=== PATIENT | female | born 1935 | race Caucasian/White ===

== ENCOUNTER 2018-12-19 12:48 | Inpatient (IN) | payer MEDICARE, BC ==
[~2018-12-19] VITALS: Ht 162.6 cm; Wt 66.1 kg
--- NOTE | ~2018-12-19 | HEMODYNAMI ---
PATIENT:NERIS CARTWRIGHT MEDICAL RECORD: [id number] : 37 LOCATION:[facility].2103 ADMISSION DATE: 12/19/18 Generatedon:12/23/201811:15 Patient name: NERIS CARTWRIGHT Patient #: [id number] SSN: : 1935 Date of study: 12/23/2018 Page: Of Hemodynamic Procedure Report Patient Data Patient Demographics Procedure consent was obtained First Name: NERIS Gender: Female Last Name: CHAY : 1935 Patient #: [id number] Age: 83 year(s) Race: Additional ID: [id number] Contact details Address: [address] [place] [address] ddr State: [place] City: [place] Zip code: [address] Admission Admission Data Admission Date: 12/19/2018 Admission Time: 16:52 Room #: D.2103 Procedure Procedure Types Cath Procedure Diagnostic Procedure Cardioversion External Procedure Description Procedure Date Procedure Date: 12/23/2018 Procedure Start Time: 11:03 Procedure End Time: 11:10 Procedure Staff Name Function Nasreen Zurita RT Scrub Juancarlos Figueroa MD Performing Physician Kenna Mahmood RT Monitor Judith Fuentes RN Nurse Giacomo Tan MD Additional personnel Procedure Data Cath Procedure Fluoroscopy Diagnostic fluoroscopy Total fluoroscopy Time: 0 time: 0 min min Diagnostic fluoroscopy Total fluoroscopy dose: 0 dose: 0 mGy mGy Contrast Material Contrast Material Type Amount (ml) Isovue 370 0 Estimated blood loss: 0 ml Procedure Complications No complications Procedure Medications Medication Administration Route Dosage 0.9% NaCl I.V. 100 ml/hr Oxygen etCO2 Nasal cannula 6 l/min Refer to Anesthesia Notes for Sedation Medications Hemodynamics Rest Heart Rate: 81 (bpm) Snapshots Pre Cath Intra NCS Post Cath Vital Signs Time Heart Resp SPO2 etCO2 NIBP Rhythm Pain Sedation Rate (ipm) (%) (mmHg) (mmHg) Status Level (bpm) 10:56:31 74 15 98 18 121/63(84) A-Fib 0 (11) 10(A) , No pain 11:00:38 80 14 98 16.5 126/57(91) A-Fib 0 (11) 10(A) , No pain 11:04:48 81 17 98 20.3 108/59(75) A-Fib 0 (11) 5(A) , No pain 11:08:01 83 25 98 17.3 92/59(72) A-Fib 0 (11) 10(A) , No pain Medications Time Medication Route Dose Verified Delivered Reason Notes Effective ness by by 11:00:36 0.9% NaCl I.V. 100 Juancarlos Judith used for ml/hr Henry Fuentes director of maintenance 11:00:48 Oxygen etCO2 6 Juancarlos Judith used for Nasal l/min Henry Fuentes procedure cannula RN 11:00:52 Refer to Juancarlos Judith Anesthesia Henry Fuentes Notes for RN Sedation Medications Procedure Log Time Note 10:43:43 Informed consent obtained and on chart 10:44:00 Time tracking: Regular hours (M-F 7:00 - 5:00) 10:44:04 Plan of Care:Hemodynamics will remain stable., Cardiac rhythm will remain stable., Comfort level will be maintained., Respiratory function will remain adequate., Patient/ family verbilizes understanding of procedure., Procedure tolerated without complication., Recovers from procedure without complications.. 10:50:39 Patient received from Med II to CCL 2 Alert and oriented. Tansferred to table in Supine position. 10:50:40 Warm blankets applied, and derek hugger turned on for patient comfort. 10:50:41 Correct patient and procedure confirmed by team. 10:50:46 ECG and BP/O2 sat monitors applied to patient. 10:55:16 Vital chart was started 10:55:18 Baseline sample Acquired. 10:55:21 Rhythm: paced 10:55:23 Full Disclosure recording started 10:55:27 H&P Date Dictated: 12/23/2018 New H&P dictated by physician.. 10:55:28 Pre-procedure instructions explained to patient. 10:55:28 Pre-op teaching completed and patient verbalized understanding. 10:55:30 Family in patients room. 10:55:31 Patient NPO since Midnight. 10:55:35 Is the patient allergic to Iodine/contrast media? No. 10:55:36 Was the patient premedicated? No 10:55:37 Is patient on blood thinner?Yes 10:55:42 ACC The patient was administered the following blood thiners within the last 24 hours: Eliquis 10:55:48 Patient diabetic? No. 10:55:51 Previous problem with sedation/anesthesia? No ? 10:55:54 Snore? Yes 10:55:55 Sleep apnea? No 10:55:55 Deviated septum? No 10:55:56 Opens mouth fully? Yes 10:55:57 Sticks out tongue? Yes 10:55:59 Airway obstruction? No ? 10:56:02 Dentures? No ? 10:56:05 Pre procedure: right dorsailis pedis pulse 2+ Normal; easily identifiable; not easily obliterated 10:56:07 Pre procedure: left dorsailis pedis pulse 2+ Normal; easily identifiable; not easily obliterated 10:56:08 Patient pain scale 0/10 ?. 10:56:20 IV patent on arrival in right antecubital with 0.9% NaCl at O. 10:56:22 Lab results completed and on chart. 10:56:29 Alarms reviewed by R. N. 10:56:29 Sharps counted by scrub and verified by R.N. 10:57:19 [employer] security representative Lawrence Ferrera present for procedure. 10:57:26 Giacomo Tan MD present and monitoring patient for TIVA. 10:57:27 Quick combo pads placed on patients chest and back. 10:57:32 Defibrillator synced and charged to 200 Joules. 10:58:59 Judith Fuentes RN sent for patient. Start room use. 11:00:36 0.9% NaCl 100 ml/hr I.V. was administered by Judith Fuentes RN; used for procedure; 11:00:48 Oxygen 6 l/min etCO2 Nasal cannula was administered by Judith Fuentes RN; used for procedure; 11:00:52 Refer to Anesthesia Notes for Sedation Medications was administered by Judith Fuentes RN; ; 11:01:16 Physician arrived 11:01:16 --------ALL STOP TIME OUT------ 11:01:17 Final Timeout: patient, procedure, and site verified with staff and physician. All members of the team are in agreement. 11:01:25 Fire Safety Assessment: A--An alcohol-based skin anteseptic being used preoperatively., C--Open oxygen or nitrous oxide is being used., D--An ESU, laser, or fiber-optic light is being used. 11:01:29 Physical assessment completed. ASA score P 2 - A patient with mild systemic disease as per Juancarlos Figueroa MD. 11:01:47 Sedation plan: TIVA Medication:Propofol 11:03:43 Procedure started. 11:05:02 Shock delivered. 11:05:03 Unsuccessful cardioversion. 11:05:38 Defibrillator synced and charged to 300 Joules. 11:05:42 Shock delivered. 11:06:39 Unsuccessful cardioversion. 11:06:55 Defibrillator synced and charged to 360 Joules. 11:07:01 Shock delivered. 11:08:08 Unsuccessful cardioversion. 11:08:12 Procedure ended.(Physican Out) 11:08:42 Fluoroscopy time 00.00 minutes. 11:08:44 Fluoroscopy dose: 0 mGy 11:08:44 Flurop Dose total: 0 11:08:48 Contrast amount:Isovue 370 0ml. 11:08:51 Sharps counted by scrub and verified by R.N. 11:09:01 Insertion/operative site no bleeding no hematoma. 11:09:08 Post procedure rhythm: unchanged. 11:09:11 Estimated blood loss: 0 ml 11:09:13 Post procedure instruction explained to patient.Patient verbalizes understanding. 11:09:13 Patient needs reinforcement of post procedure teaching. 11:09:23 Procedure and supply charges have been captured, reviewed, submitted and are correct. 11:09:33 Procedure Complication : No complications 11:09:36 Vital chart was stopped 11:09:36 See physician's report for complete and final results. 11:10:05 Report given to Med II. 11:10:13 Patient transfered to Med II with Stretcher. 11:10:16 Procedure ended. 11:10:16 Full Disclosure recording stopped 11:10:27 End room use (Document Last) Signature Audit [place] Stage Time Signature Unsigned Intra-Procedure 12/23/2018 Nasreen Zurita 11:15:21 AM RT(R) Signatures Monitor : Kenna Mahmood Signature : RT Date : Time : [address] [place] [address]
[2018-12-19 13:30] VITALS: BP 115/50
[2018-12-19 14:00] VITALS: BP 104/53
--- NOTE | 2018-12-19 14:07 | NUR ---
PLACED ON BEDPAN FOR UA. UA SENT TO LAB. LARGE HEMATOMA NOTED TO THE LEFT GLUTE, AREA FIRM TO PALPATION. BRUISING IS DEEP PURPLE IN COLOR. SMALL ABRASION NOTED LEFT OF GLUTEAL CLEFT APPROX ONE INCH IS SIZE. ALSO SECOND ABRASION NOTED LATERAL TO 1ST ABRASION APPROX DIME SIZE. BANDAGES APPLIED TO BOTH.
[2018-12-19 14:29] LABS: BASOPHILS 0.1 % (0-2); EOSINOPHILS 0 % (0-7); HEMATOCRIT 29.4 % (36.0-48.0); IMMATURE GRANULOCYTES 0.4 % (0-5); LYMPHOCYTES 5.2 % (15-50); MCH 30.6 pg (26.0-34.0); MCV 89.9 fL (80.0-100.0); MEAN PLATELET VOLUME 9.2 fL (7.4-10.4); MONOCYTES 6.8 % (2-11); NEUTROPHILS 87.5 % (40-80); PLATELET COUNT 226 10x3/uL (130-400); RBC 3.27 10x6/uL (4.00-5.40); RDW 13.3 % (11.5-14.5); WBC 15.4 10x3/uL (4.8-10.8)
[2018-12-19 14:46] LABS: ALBUMIN 3.3 g/dL (3.4-5.0); ANION GAP 13.5 mmol/L (8-16); BILIRUBIN - TOTAL 0.92 mg/dL (0.2-1.3); CALCIUM 8.8 mg/dL (8.5-10.1); CARBON DIOXIDE 28.6 mmol/L (21.0-32.0); CREATININE - SERUM 0.8 mg/dL (0.6-1.3); POTASSIUM - SERUM 3.1 mmol/L (3.5-5.1); PROTEIN - SERUM 6.8 g/dL (6.4-8.2)
[2018-12-19 14:58] LABS: APPEARANCE CLEAR (CLEAR); COLOR DK YELLOW (YELLOW); NITRITE NEGATIVE (NEGATIVE)
[2018-12-19 14:59] LABS: BILIRUBIN NEGATIVE (NEGATIVE); GLUCOSE NEGATIVE (NEGATIVE); KETONE SMALL mg/dL (NEGATIVE); PROTEIN 1+ mg/dL (NEGATIVE); UROBILINOGEN NORMAL (NORMAL)
[2018-12-19 15:00] VITALS: BP 103/49
[2018-12-19 15:01] LABS: BACTERIA FEW /hpf (NONE SEEN); EPITHELIAL CELLS 0-5 /hpf (0-5); RED CELLS - URINE RARE /hpf (0-5); WHITE CELLS - URINE 0-5 /hpf (0-5)
[2018-12-19 15:22] LABS: THYROID STIMULATING HORMONE 1.85 uIU/mL (0.36-3.74)
[2018-12-19 15:28] LABS: CKMB 1.3 U/L (0.0-3.6); CREATINE KINASE 347 UL (21-215)
[2018-12-19 16:00] VITALS: BP 118/51
--- NOTE | 2018-12-19 16:12 | NUR ---
LT UPPER ARM INFILTRATED. D/C CATH INTACT BANDAID APPLIED. PIV RESITED TO TH RT FOREARM.
[2018-12-19 17:00] VITALS: BP 93/56
--- NOTE | 2018-12-19 18:01 | NUR ---
PT IN ROOM FROM ER. A/O, VERY PLESANT. NO COMPLAINTS/CONCERNS. FAMILY AT BEDSIDE.
--- NOTE | 2018-12-19 18:26 | NUR ---
PT IS WEARING SCD'S.
--- NOTE | 2018-12-19 18:30 | NUR ---
PTS SON WILL BE HERE AROUND 1900 WITH HER MEDLIST. UNTIL THEN PT DOES NOT KNO WHER HOME MEDICATIONS.
--- NOTE | 2018-12-19 19:00 | NUR ---
PATIENT LAYING IN BED. FAMILY AT BEDSIDE. NO COMPLAINTS AT THIS TIME. NO DISTRESS NOTED.
[2018-12-19 20:00] VITALS: BP 103/51
--- NOTE | 2018-12-19 23:42 | NUR ---
PATIENT LAYING IN BED. EYES CLOSED, CHEST RISING AND FALLING. NO DISTRESS NOTED.
[2018-12-20] VITALS: BP 94/55
--- NOTE | 2018-12-20 02:05 | NUR ---
I have reviewed this patient and I concur with the Shift Assessment completed by the Licensed Practical Nurse today this shift.
[2018-12-20 04:00] VITALS: BP 109/57
[2018-12-20 04:17] LABS: BASOPHILS 0.2 % (0-2); EOSINOPHILS 0 % (0-7); HEMATOCRIT 26.2 % (36.0-48.0); HEMOGLOBIN 8.7 g/dL (12-16); IMMATURE GRANULOCYTES 0.4 % (0-5); LYMPHOCYTES 8.8 % (15-50); MCH 29.9 pg (26.0-34.0); MCHC 33.2 g/dL (31.0-37.0); MONOCYTES 4.5 % (2-11); NEUTROPHILS 86.1 % (40-80); PLATELET COUNT 194 10x3/uL (130-400); RBC 2.91 10x6/uL (4.00-5.40); RDW 13.6 % (11.5-14.5)
[2018-12-20 04:19] LABS: WBC 11.4 10x3/uL (4.8-10.8)
[2018-12-20 04:41] LABS: ANION GAP 11.4 mmol/L (8-16); CALCIUM 7.9 mg/dL (8.5-10.1); CARBON DIOXIDE 27.6 mmol/L (21.0-32.0); CREATININE - SERUM 0.8 mg/dL (0.6-1.3); MAGNESIUM - SERUM 1.7 mg/dL (1.8-2.4); PHOSPHOROUS 2.6 mg/dL (2.5-4.9)
--- NOTE | 2018-12-20 07:13 | NUR ---
AM ROUNDS- PT RESTING COMFORTABLY WITH EYES CLOSED, EASILY AROUSES TO VOICE. ON 2L WITH EVEN AND UNLABORED RESP. RT FA IV INFUSING NS AT KVO. SCDS ON BILAT. MONITOR SHOWING FIB/FLUTTER WITH RATE OF 103. PROVIDED PT WITH ICE WATER, PILL BOX AT BEDSIDE, INFORMED PT NOT TO TAKE ANY OF HER MEDICATIONS UNTIL SEEN BY DOCTOR TODAY. PT DENIES ANY NEEDS AT THIS TIME. CALL LIGHT IN REACH, NAD NOTED, WILL CONTINUE PLAN OF CARE.
[2018-12-20 08:01] VITALS: BP 100/60
[2018-12-20 09:52] VITALS: BMI 24.0
[2018-12-20] MEDS ORDERED: TRICOR145 MG PO (11:03)
[2018-12-20] MEDS ORDERED: MAXZIDE 75/501 TAB PO (11:04)
[2018-12-20] MEDS ORDERED: CELEXA20 MG PO (11:05)
[2018-12-20] MEDS ORDERED: VITAMIN B-121000 MCG PO (11:06)
[2018-12-20] MEDS ORDERED: MERIBIN5 MG PO (11:07)
[2018-12-20] MEDS ORDERED: ASPIRIN81 MG PO (11:08)
[2018-12-20] MEDS ORDERED: VITAMIN D5000 UNIT PO (11:09)
[2018-12-20] MEDS ORDERED: OMEGA-3100 MG PO (11:09)
[2018-12-20] MEDS ORDERED: POTASSIUM99 M1 PO (11:10)
[2018-12-20] MEDS ORDERED: GLUCOSAMINE HC500 MG PO (11:11)
[2018-12-20] MEDS ORDERED: MELATONIN5 MG PO (11:16)
[2018-12-20] MEDS ORDERED: ELIQUIS5 MG PO (11:20)
[2018-12-20] MEDS ORDERED: ESTRACE 0.5 MG0.5 MG PO (11:20)
[2018-12-20] MEDS ORDERED: OXYBUTYNIN CHLOR5 MG PO (11:27)
[2018-12-20] MEDS ORDERED: AMIODARONE HCL200 MG PO (11:27)
[2018-12-20] MEDS ORDERED: CARTIA XT180 MG PO (11:27)
[2018-12-20] MEDS ORDERED: SYNTHROID25 MCG PO (11:28)
[2018-12-20 11:35] VITALS: BP 109/48
--- NOTE | 2018-12-20 14:05 | NUR ---
Rehab Note- Acute Inpatient Rehab prescreen order received. The patient is a new admit and is currently having an acute work up with a pending Cardiology consult with d/t prior to hospital admit having discussed possible cardioversion d/t A-fib, also pending OT & PT Evals. Will continue to follow at this time. Thank you for this referral! Sole Sheffield RN Clinical Liaison, [facility] Rehab
[2018-12-20 17:04] LABS: % SATURATION 4 % (15-55); IRON 9 ug/dl (35-150); TOTAL IRON BIND CAPACITY 212 ug/dl (260-445); UNSAT IRON BIND CAPACITY 203 ug/dl (150-375)
--- NOTE | 2018-12-20 17:20 | NUR ---
OT NOTE: PT COMPLETED BED MOB WITH MOD A. PT COMPLETED EOB SITTING WITH CGA. PT COMPLETED FACE WASHING WITH SET UP AT EOB. THANK YOU, RANDI DUNN
--- NOTE | 2018-12-20 19:58 | NUR ---
ROUNDS COMPLETED. VSS, TRINIOX3. FAMILY @BEDSIDE. NO S/S OF RR DISTRESS. OCCULT STOOL SAMPLE COLLECTED AND SENT TO THE LAB. PT DENIES ANY FURTHER NEEDS AT THIS TIME. WILL CPOC. CL IN REACH, BED IN LOW, SR UP X2.
[2018-12-20 20:00] VITALS: BP 128/76
[2018-12-21] VITALS (7 sets, daily range): BP systolic 102–134; BP diastolic 62–76; Ht 162.6 cm; Wt 66.1 kg
[2018-12-21 05:48] LABS: BASOPHILS 0.2 % (0-2); EOSINOPHILS 0.2 % (0-7); HEMATOCRIT 26.3 % (36.0-48.0); HEMOGLOBIN 9.1 g/dL (12-16); LYMPHOCYTES 5.5 % (15-50); MCH 30.3 pg (26.0-34.0); MCHC 34.6 g/dL (31.0-37.0); MEAN PLATELET VOLUME 9.6 fL (7.4-10.4); MONOCYTES 6.2 % (2-11); NEUTROPHILS 86.9 % (40-80); RDW 13.4 % (11.5-14.5)
[2018-12-21 06:24] LABS: ALKALINE PHOSPHATASE 57 U/L (46-116); ALT (SGPT) 21 U/L (10-68); BILIRUBIN - TOTAL 0.62 mg/dL (0.2-1.3); CALC OSMOLALITY 278 mosm/kg (275-300); CALCIUM 8.3 mg/dL (8.5-10.1); CARBON DIOXIDE 30.3 mmol/L (21.0-32.0); CHLORIDE - SERUM 104 mmol/L (98-107); CREATININE - SERUM 0.7 mg/dL (0.6-1.3); GLUCOSE 102 mg/dL (74-106); MAGNESIUM - SERUM 1.8 mg/dL (1.8-2.4); PROTEIN - SERUM 5.6 g/dL (6.4-8.2); SODIUM 140 mmol/L (136-145); UREA NITROGEN 12 mg/dL (7-18); eGFR NON AFRICAN AMERICAN 85 mL/min (90-120)
[2018-12-21 06:29] LABS: MCV 87.7 fL (80.0-100.0); PLATELET COUNT 254 10x3/uL (130-400); WBC 14.7 10x3/uL (4.8-10.8)
[2018-12-21 06:46] LABS: ALBUMIN 2.2 g/dL (3.4-5.0)
[2018-12-21 06:48] LABS: POTASSIUM - SERUM 2.9 mmol/L (3.5-5.1)
--- NOTE | 2018-12-21 08:41 | NUR ---
AM MEDS GIVEN AT THIS TIME. PT A/O X4, RESP EVEN AND NONLABORED ON 2L. RT FA IV SL. MONITOR SHOWING CAF WITH THE RATE OF 100. PT EATING BREAKAST, NO TROUBLE SWALLOWING NOTED. PT DENIES ANY NEEDS AT THIS TIME. CALL LIGHT IN REACH, BEDSIDE RAILS X2, NAD NOTED, WILL CONTINUE PLAN OF CARE.
--- NOTE | 2018-12-21 09:24 | NUR ---
Rehab Note- Continue to follow at this time. Continues to have cardiac work up. Per PT & OT Evals the patient would benefit from an inpatient acute rehab stay prior to being discharged home. Thank you for this referral! Sole Sheffield RN Clinical Liaison, [facility] Rehab
--- NOTE | 2018-12-21 10:51 | NUR ---
C/O COUGH, NOTIFIED PETE PENA, NEW ORDER FOR TESSALON PERLES 100MG TID.
--- NOTE | 2018-12-21 12:54 | MORECARE ---
CASE MANAGEMENT DISCHARGE SUMMARY PATIENT: NERIS CARTWRIGHT UNIT: [id number] ADM DATE: 12/19/18 AGE: 83 : 36 SEX: F ROOM/BED: D.2103 AUTHOR: LUIS WOOD PHYSICIAN: REFERRING PHYSICIAN: DECLAN RAINES MD DATE OF SERVICE: 12/21/18 Discharge Plan Patient Name: NERIS CARTWRIGHT [facility] [facility] 1935 Planned Disposition: Inpatient Rehab Anticipated Discharge Date: 12/22/18 Discharge Date: Expected LOS: 3 Initial Reviewer: [email or web address] Initial Review Date: 12/21/2018 Generated: 12/21/18 1:54 pm DCPIA - Discharge Planning Initial Assessment Updated by [email or web address]: Zoltan Soto on 12/21/18 12:50 pm * Is the patient Alert and Oriented? Yes * How many steps to enter\exit or inside your home? NONE * PCP DR. WEBSTER * Pharmacy [facility] ON [address] * Preadmission Environment Independent [facility] * Other Environment APARTMENT * Facility Name [facility] * ADLs Independent * Equipment Cane Rolling Walker * Other Equipment 4 WHEELED WALKER WITH SEAT AND BRAKES NO MEDICAL EQUIPMENT PROVIDER PREFERENCE * List name and contact numbers for known caregivers / representatives who currently or will assist patient after discharge: HUSSAINSung CARTWRIGHT, DTR IN LAW, * Verbal permission to speak to the caregivers and representatives has been obtained from the patient. N/A * Community resources currently utilized None * Please name any agencies selected above. NONE * Additional services required to return to the preadmission environment? Yes * Can the patient safely return to the preadmission environment? Yes * Has this patient been hospitalized within the prior 30 days at any hospital? Yes Patient Name: NERIS CARTWRIGHT Page [id number] at 0594 All edits/amendments must be made on the electronic document DICTATION DATE: 12/21/18 1253 PEST CONTROLLER: DEMARCO 12/21/18 1253 RPT#: [id number] DC DATE: STATUS: ADM IN [facility] [address] [place] [address] END OF REPORT
--- NOTE | 2018-12-21 13:02 | MORECARE ---
CASE MANAGEMENT DISCHARGE SUMMARY PATIENT: NERIS CARTWRIGHT UNIT: [id number] ADM DATE: 12/19/18 AGE: 83 : 36 SEX: F ROOM/BED: D.2103 AUTHOR: ISRAEL,DOC PHYSICIAN: REFERRING PHYSICIAN: DECLAN RAINES MD DATE OF SERVICE: 12/21/18 Discharge Plan Patient Name: NERIS CARTWRIGHT [facility] [facility] 1935 Planned Disposition: Inpatient Rehab Anticipated Discharge Date: 12/22/18 Discharge Date: Expected LOS: 3 Initial Reviewer: [email or web address] Initial Review Date: 12/21/2018 Generated: 12/21/18 2:01 pm Comments DCP- Discharge Planning Updated by [email or web address]: Zoltan Soto on 12/21/18 11:[address] Patient Name: NERIS CARTWRIGHT Encounter No: [id number] : 1935 Primary Insurance: MEDICARE A & B Anticipated DC Date: 12-22-2018 Planned Disposition: Inpatient Rehab External Planned Provider: [facility] INPATIENT RHEAB DISCHARGE PLANNING NOTE: CM RECEIVED INPATIENT REHAB PRESCREENING ORDER, MET WITH PT IN ROOM TO DISCUSS DISCHARGE PLANNING AND NEEDS. PT REPORTS LIVING AT [facility] APARTMENT ALONE. PT HAS CANE AND WALKER WITH SEAT AND BRAKES WITH NO MEDICAL EQUIPMENT PROVIDER PREFERENCE. PT HAS NO OUTSIDE SERVICES ASSISTING IN THE HOME. CM DISCUSSED AVAILABILITY OF HOME HEALTH, REHAB SERVICES AND MEDICAL EQUIPMENT. PT WOULD LIKE REHAB AT [place]. PT FEELS THAT IN THE FUTURE, SHE MAY NEED TO MOVE INTO THE ASSISTED LIVING AT [facility], SHE IS NOT SURE AT THIS TIME. IMPORTANT MESSAGE FROM MEDICARE PROVIDED AND EXPLAINED. CM WAITING INPATIENT REHAB PRESCREENING AND ADMISSION DETERMINATION FROM [facility] INPATIENT REHAB. CM TO FOLLOW AND ASSIST NEEDED. MOE Heath DCPIA - Discharge Planning Initial Assessment Updated by [email or web address]: Zoltan Soto on 12/21/18 12:50 pm * Is the patient Alert and Oriented? Yes * How many steps to enter\exit or inside your home? NONE * PCP DR. WEBSTER * [facility]acy [facility] [address] * Preadmission Environment Independent [facility] * Other Environment APARTMENT * Facility Name [facility] * ADLs Independent * Equipment Cane Rolling Walker * Other Equipment 4 WHEELED WALKER WITH SEAT AND BRAKES NO MEDICAL EQUIPMENT PROVIDER PREFERENCE * List name and contact numbers for known caregivers / representatives who currently or will assist patient after discharge: HUSSAIN CARTWRIGHT DTR IN LAW, * Verbal permission to speak to the caregivers and representatives has been obtained from the patient. N/A * Community resources currently utilized None * Please name any agencies selected above. NONE * Additional services required to return to the preadmission environment? Yes * Can the patient safely return to the preadmission environment? Yes * Has this patient been hospitalized within the prior 30 days at any hospital? Yes Last DP export: 12/21/18 11:54 a Patient Name: NERIS CARTWRIGHT Page [phone] at 1302 All edits/amendments must be made on the electronic document DICTATION DATE: 12/21/18 1301 FACTORY ENGINEER: DEMARCO 12/21/18 1301 RPT#: [id number] DC DATE: STATUS: ADM IN [facility] [address] [place] [address] END OF REPORT
--- NOTE | 2018-12-21 14:20 | NUR ---
K OF 3.1 GAVE 40MEQ OF K PER EP.
--- NOTE | 2018-12-21 15:56 | NUR ---
OT NOTE: PT COMPLETED BED MOB WITH MOD/MAX. PT COMPLETED SIT TO STAND WITH MIN A. PT COMPLETED BATHING TASKS AT EOB WITH MOD A. THANK YOU,RANDI DUNN
--- NOTE | 2018-12-21 19:15 | NUR ---
PT RESTING IN BED. 2L O2 NC. PT IS AAO, HEARTRATE IRREGULAR. PACEMAKER NOTED. LUNGS CLEAR. PT HAS SCD'S ON BILATERAL LOWER EXTREM. RIGHT WRIST 22G S/L WEAKNESS NOTED. PEDAL PULSES +2 PT IS VERY WEAK, WILL CPOC
--- NOTE | 2018-12-21 21:49 | NUR ---
NIGHT MEDICATIONS GIVEN. TYLENOL GIVEN FOR GENERALIZED PAIN. PT UP TO RESTROOM WITH 1-2 PERSON ASSIST. PT INCONT A MODERATE AMOUNT INTO BREIF. PT HAS RA NOTED IN CONTRACTED HANDS. LEFT ELBOW BRUISE AND SKIN TEAR. PT WILL CALL FOR ASSIST WHEN NEEDED. WILL CPOC
[2018-12-22 00:09] VITALS: BP 126/58
--- NOTE | 2018-12-22 00:25 | NUR ---
PT UP TO RESTROOM. X1 ASSIST. VERBAL QUES. PT GAIT UNSTEADY. WALKED BACK TO BED AND NOURISHMENT OFFERED. PT ON 2L O2 NC. SCD'S ON AND ACTIVE. PT HAS NO S/S OF DISTRESS. DENIES ANY OTHER NEEDS. WILL CPOC
[2018-12-22 04:00] VITALS: BP 121/54
--- NOTE | 2018-12-22 04:05 | NUR ---
PT CALLED TO USE RESTROOM. PT INCONT A MODERATE AMOUNT OF URINE. NEW BREIF PLACED ON. PT BACK TO BED. DENIES ANY NEEDS. NO S/S OF DISTRESS. WILL CPOC
[2018-12-22 06:08] LABS: BASOPHILS 0.1 % (0-2); EOSINOPHILS 0.1 % (0-7); HEMATOCRIT 25.5 % (36.0-48.0); HEMOGLOBIN 8.8 g/dL (12-16); LYMPHOCYTES 4.2 % (15-50); MCH 30.1 pg (26.0-34.0); MCHC 34.5 g/dL (31.0-37.0); MCV 87.3 fL (80.0-100.0); MEAN PLATELET VOLUME 9.4 fL (7.4-10.4); MONOCYTES 6.4 % (2-11); NEUTROPHILS 86.2 % (40-80); PLATELET COUNT 264 10x3/uL (130-400); RBC 2.92 10x6/uL (4.00-5.40); RDW 13.4 % (11.5-14.5); WBC 17.9 10x3/uL (4.8-10.8)
[2018-12-22 06:29] LABS: ALBUMIN 2.1 g/dL (3.4-5.0); ALKALINE PHOSPHATASE 64 U/L (46-116); ALT (SGPT) 23 U/L (10-68); BILIRUBIN - TOTAL 0.78 mg/dL (0.2-1.3); CALC OSMOLALITY 273 mosm/kg (275-300); CALCIUM 8.4 mg/dL (8.5-10.1); CARBON DIOXIDE 27.4 mmol/L (21.0-32.0); CHLORIDE - SERUM 102 mmol/L (98-107); CREATININE - SERUM 0.6 mg/dL (0.6-1.3); GLUCOSE 108 mg/dL (74-106); MAGNESIUM - SERUM 1.7 mg/dL (1.8-2.4); PROTEIN - SERUM 5.9 g/dL (6.4-8.2); SODIUM 137 mmol/L (136-145); UREA NITROGEN 9 mg/dL (7-18); eGFR NON AFRICAN AMERICAN > 90 mL/min (90-120)
[2018-12-22 06:38] LABS: POTASSIUM - SERUM 3.7 mmol/L (3.5-5.1)
--- NOTE | 2018-12-22 07:12 | NUR ---
MORNING MEDS GIVEN. MAGNESIUM 400MG GIVEN FOR 1.7 LAB VALUE RESULT. PT WILL CALL FOR ASSIST WHEN NEEDED. WILL CPOC
--- NOTE | 2018-12-22 07:15 | NUR ---
RESTING QUIETLY WITH EYES CLOSED. RESP EVEN,NONLABORED.
--- NOTE | 2018-12-22 08:00 | NUR ---
ASSESSMENT COMPLETE. SL TO R FA. O2 2L NC IN USE. INCONT OF BLADDER AT TIMES. SALESPERSON FLOWERS SHOWING AFIB 93 PER TECH. SCD'S IN USE TO BILAT LEGS. DENIES ANY NEEDS AT THIS TIME.
[2018-12-22 08:48] VITALS: BP 109/61
[2018-12-22 11:59] VITALS: BP 116/63
--- NOTE | 2018-12-22 12:00 | NUR ---
VISITING WITH SON. DENIES ANY NEEDS AT THIS TIME.
[2018-12-22 12:12] LABS: FOLATE (FOLIC ACID) - SERUM 17.4 ng/mL (>3.0)
--- NOTE | 2018-12-22 13:01 | NUR ---
OT NOTE: PERFORMED BED MOB INCLUDING SUPINE TO SIT WITH MOD ASSIST. AMBULATED TO BATHROOM WITH RW AND MIN ASSIST; TOILET TRANSFER WITH MIN/MOD ASSIST; TOILET HYGIENE WITH MOD ASSIST; REQUIRED MAX ASSIST WITH DOFFING AND DONNING BRIEF. SIMPLE GROOMING TASKS WITH SET UP. IN ROOM AMBULATION WITH ASSIST AND 2 REST BREAKS. BACK IN BED WITH MOD ASSIST. WILDER ULLOA, OTR/L
--- NOTE | 2018-12-22 14:38 | NUR ---
DENIES ANY NEEDS. RESTING QUIETLY IN BED.
[2018-12-22 16:17] VITALS: BP 110/53
[2018-12-22 20:00] VITALS: BP 114/66
[2018-12-23] VITALS: BP 117/68
[2018-12-23 04:00] VITALS: BP 113/59
[2018-12-23 06:21] LABS: BASOPHILS 0.2 % (0-2); EOSINOPHILS 0.2 % (0-7); HEMATOCRIT 26.1 % (36.0-48.0); HEMOGLOBIN 9.1 g/dL (12-16); IMMATURE GRANULOCYTES 6.5 % (0-5); MCH 30.4 pg (26.0-34.0); MCHC 34.9 g/dL (31.0-37.0); MCV 87.3 fL (80.0-100.0); MEAN PLATELET VOLUME 8.8 fL (7.4-10.4); MONOCYTES 8.9 % (2-11); NEUTROPHILS 78.2 % (40-80); PLATELET COUNT 284 10x3/uL (130-400); RBC 2.99 10x6/uL (4.00-5.40); RDW 13.6 % (11.5-14.5)
[2018-12-23 06:49] LABS: ALBUMIN 2.1 g/dL (3.4-5.0); ALKALINE PHOSPHATASE 65 U/L (46-116); BILIRUBIN - TOTAL 0.86 mg/dL (0.2-1.3); CALC OSMOLALITY 266 mosm/kg (275-300); CALCIUM 8.4 mg/dL (8.5-10.1); CHLORIDE - SERUM 98 mmol/L (98-107); CREATININE - SERUM 0.6 mg/dL (0.6-1.3); GLUCOSE 107 mg/dL (74-106); MAGNESIUM - SERUM 1.8 mg/dL (1.8-2.4); POTASSIUM - SERUM 3.2 mmol/L (3.5-5.1); PROTEIN - SERUM 6.3 g/dL (6.4-8.2); SODIUM 134 mmol/L (136-145); UREA NITROGEN 9 mg/dL (7-18); eGFR NON AFRICAN AMERICAN > 90 mL/min (90-120)
[2018-12-23 06:50] LABS: ALT (SGPT) 29 U/L (10-68)
--- NOTE | 2018-12-23 07:35 | NUR ---
ASSESSMENT COMPLETE. SL TO R FA. O2 2L NC IN USE. INCONT OF BLADDER AT TIMES. MANAGER OF CUSTOMER BILLING SHOWING AFIB 73 PER TECH.NPO FOR CARDIOVERSION TODAY. DENIES ANY NEEDS AT THIS TIME.
[2018-12-23 07:50] VITALS: BP 110/59
--- NOTE | 2018-12-23 10:48 | NUR ---
OFF FLOOR TO CONSTRUCTION CONTROLLER VIA BED.
--- NOTE | 2018-12-23 11:20 | NUR ---
RETURNED TO ROOM. FAMILY AT BEDSIDE. VSS.
--- NOTE | 2018-12-23 13:40 | NUR ---
Nutrition follow-up: Diet: AHA with po intake ~75% of meals Labs reviewed Pt had heart cath today Wt: 142# RDN following.
--- NOTE | 2018-12-23 15:00 | NUR ---
NO CHANGES NOTED AT THIS TIME.
[2018-12-23 15:39] VITALS: BP 116/64
--- NOTE | 2018-12-23 18:12 | NUR ---
NO CHANGES NOTED AT THIS TIME.
--- NOTE | 2018-12-23 18:47 | NUR ---
ROBUTUSSIN COUGH SYRUP GIVEN PER PATIENT REQUEST.
--- NOTE | 2018-12-23 19:30 | NUR ---
RESUMING CARE PT LAYING IN BED A&O X4 BREATH SOUNDS EVEN , 3 LITERS OF 02 ON VIA NC . IV LFT FA CL SCD'S ON, PT HAS BRUISING TO BOTH HIPS AND BOTTOM C/O PAIN AT THIS TIME CL IN REACH WILL CONT TO MONITOR
[2018-12-23 20:00] VITALS: BP 108/54; BP 116/61
[2018-12-24] VITALS: BP 108/54
--- NOTE | 2018-12-24 02:24 | NUR ---
I have reviewed this patient and I concur with the Shift Assessment completed by the Licensed Practical Nurse today this shift.
[2018-12-24 05:22] LABS: BASOPHILS 0.1 % (0-2); EOSINOPHILS 0.5 % (0-7); HEMATOCRIT 24.1 % (36.0-48.0); HEMOGLOBIN 8.4 g/dL (12-16); IMMATURE GRANULOCYTES 9.3 % (0-5); LYMPHOCYTES 6.6 % (15-50); MCH 30.5 pg (26.0-34.0); MCHC 34.9 g/dL (31.0-37.0); MCV 87.6 fL (80.0-100.0); MEAN PLATELET VOLUME 8.9 fL (7.4-10.4); MONOCYTES 7.9 % (2-11); NEUTROPHILS 75.6 % (40-80); PLATELET COUNT 311 10x3/uL (130-400); RBC 2.75 10x6/uL (4.00-5.40); RDW 13.8 % (11.5-14.5); WBC 14.8 10x3/uL (4.8-10.8)
[2018-12-24 05:33] LABS: ALBUMIN 1.9 g/dL (3.4-5.0); ALKALINE PHOSPHATASE 60 U/L (46-116); ALT (SGPT) 31 U/L (10-68); BILIRUBIN - TOTAL 0.79 mg/dL (0.2-1.3); CALC OSMOLALITY 271 mosm/kg (275-300); CALCIUM 8.3 mg/dL (8.5-10.1); CHLORIDE - SERUM 101 mmol/L (98-107); CREATININE - SERUM 0.6 mg/dL (0.6-1.3); GLUCOSE 105 mg/dL (74-106); MAGNESIUM - SERUM 2.1 mg/dL (1.8-2.4); POTASSIUM - SERUM 3.5 mmol/L (3.5-5.1); PROTEIN - SERUM 5.8 g/dL (6.4-8.2); SODIUM 136 mmol/L (136-145); eGFR NON AFRICAN AMERICAN > 90 mL/min (90-120)
[2018-12-24 05:36] LABS: UREA NITROGEN 12 mg/dL (7-18)
--- NOTE | 2018-12-24 07:05 | NUR ---
RECEIVED IN BED WITH SR UP X2. RESP EVEN WITHOUT LABOR. O2 ON AT 2L/M PER N/C. SCD'S ARE ON. RIGHT FOREARM SL INTACT. CL IN REACH BED IN LOWEST POSITION. REMINDED TO PLEASE CALL FOR HELP. NON-SKID SOCKS ON. DENIES ANY CURRENT NEEDS.
[2018-12-24 09:38] VITALS: BP 106/60
--- NOTE | 2018-12-24 10:30 | NUR ---
ALERT ABLE TO VOICE NEEDS. TYLENOL GIVEN FOR CHRONIC ARTHRITIC PAIN. SON AT BEDSIDE ASSISTED HER UP TO BATHROOM TOLERATED WELL. HE STATES I BEEN HELPING HER FOR YEARS. DENIES ANY CURRENT NEEDS CL IN REACH.
[2018-12-24] MEDS ORDERED: LANOXIN125 MCG PO (10:52)
[2018-12-24] MEDS ORDERED: ELIQUIS2.5 MG PO (10:52)
[2018-12-24] MEDS ORDERED: LEVAQUIN750 MG PO (10:52)
[2018-12-24 12:43] VITALS: BP 119/66
--- NOTE | 2018-12-24 13:15 | NUR ---
FAMILY AT BEDSIDE DENIES ANY NEEDS AT THIS TIME. CL IN REACH. HAS HAD NO BM TODAY BUT SHE IS AWARE OF NEED FOR SPECIMEN WITH HAT IN BATHROOM.
--- NOTE | 2018-12-24 14:14 | MORECARE ---
CASE MANAGEMENT DISCHARGE SUMMARY PATIENT: NERIS CARTWRIGHT UNIT: [id number] ADM DATE: 12/19/18 AGE: 83 : 36 SEX: F ROOM/BED: D.2103 AUTHOR: ISRAEL,DOC PHYSICIAN: REFERRING PHYSICIAN: DECLAN RAINES MD DATE OF SERVICE: 12/24/18 Discharge Plan Patient Name: NERIS CARTWRIGHT [facility] [facility] 1935 Planned Disposition: Inpatient Rehab Anticipated Discharge Date: 12/24/18 Discharge Date: Expected LOS: 5 Initial Reviewer: [email or web address] Initial Review Date: 12/21/2018 Generated: 12/24/18 3:14 pm DCP- Discharge Planning Updated by [email or web address]: Zoltan Soto on 12/21/18 11:[address] Patient Name: NERIS CARTWRIGHT Encounter No: [id number] : 1935 Primary Insurance: MEDICARE A & B Anticipated DC Date: 12-22-2018 Planned Disposition: Inpatient Rehab External Planned Provider: [facility] INPATIENT RHEAB DISCHARGE PLANNING NOTE: CM RECEIVED INPATIENT REHAB PRESCREENING ORDER, MET WITH PT IN ROOM TO DISCUSS DISCHARGE PLANNING AND NEEDS. PT REPORTS LIVING AT [facility] APARTMENT ALONE. PT HAS CANE AND WALKER WITH SEAT AND BRAKES WITH NO MEDICAL EQUIPMENT PROVIDER PREFERENCE. PT HAS NO OUTSIDE SERVICES ASSISTING IN THE HOME. CM DISCUSSED AVAILABILITY OF HOME HEALTH, REHAB SERVICES AND MEDICAL EQUIPMENT. PT WOULD LIKE REHAB AT [place]. PT FEELS THAT IN THE FUTURE, SHE MAY NEED TO MOVE INTO THE ASSISTED LIVING AT [facility], SHE IS NOT SURE AT THIS TIME. IMPORTANT MESSAGE FROM MEDICARE PROVIDED AND EXPLAINED. CM WAITING INPATIENT REHAB PRESCREENING AND ADMISSION DETERMINATION FROM [facility] INPATIENT REHAB. CM TO FOLLOW AND ASSIST NEEDED. MOE Heath DCPIA - Discharge Planning Initial Assessment Updated by [id number]: Zoltan Soto on 12/21/18 12:50 pm * Is the patient Alert and Oriented? Yes * How many steps to enter\exit or inside your home? NONE * PCP DR. WEBSTER * Pharmacy [facility] ON [facility] * Preadmission Environment Independent [facility]ment * Other Environment APARTMENT * Facility Name [facility] * ADLs Independent * Equipment Cane Rolling Walker * Other Equipment 4 WHEELED WALKER WITH SEAT AND BRAKES NO MEDICAL EQUIPMENT PROVIDER PREFERENCE * List name and contact numbers for known caregivers / representatives who currently or will assist patient after discharge: HUSSAINSung CARTWRIGHT DTR IN LAW, * Verbal permission to speak to the caregivers and representatives has been obtained from the patient. N/A * Community resources currently utilized None * Please name any agencies selected above. NONE * Additional services required to return to the preadmission environment? Yes * Can the patient safely return to the preadmission environment? Yes * Has this patient been hospitalized within the prior 30 days at any hospital? Yes Coverage Notice Reviewer: [email or web address] Aden Soto Notice Issued Date-Time: 12/24/2018 13:35 Notice Type: IM Discharge Notice Notice Delivered To: Patient Relationship to Patient: Volunteer Services Coordinator Name: Delivery Method: HAND - Hand Delivered Tita Days: Prior Verbal Notification: Recipient Understood Notice: Yes Recipient Signature: Yes Med Rec Note Co-signed by Attending: Coverage Notice Comment: Last DP export: 12/21/18 12:02 p Patient Name: NERIS CARTWRIGHT Page [id number] at 1414 All edits/amendments must be made on the electronic document DICTATION DATE: 12/24/181412 CONTRACT PARALEGAL: DEMARCO 12/24/181412 RPT#: [id number] DC DATE: STATUS: ADM IN [facility] [address] [place] [address] END OF REPORT
--- NOTE | 2018-12-24 14:24 | MORECARE ---
CASE MANAGEMENT DISCHARGE SUMMARY PATIENT: NERIS CARTWRIGHT UNIT: [id number] ADM DATE: 12/19/18 AGE: 83 : 36 SEX: F ROOM/BED: D.2103 AUTHOR: ISRAEL,DOC PHYSICIAN: REFERRING PHYSICIAN: DECLAN RAINES MD DATE OF SERVICE: 12/24/18 Discharge Plan Patient Name: NERIS CARTWRIGHT Facility: [facility]:[place] : 1935 Planned Disposition: Inpatient Rehab Anticipated Discharge Date: 12/24/18 Discharge Date: Expected LOS: 5 Initial Reviewer: [id number] Initial Review Date: 12/21/2018 Generated: 12/24/18 3:24 pm Comments DCP- Discharge Planning Updated by [id number]: Zoltan Soto on 12/24/18 1:[address] Patient Name: NERIS ACRTWRIGHT Admission Status: ER Accout number: [id number] Admission Date: 12-19-2018 : 1935 Admission Diagnosis:PNEUMONITIS DUE TO INHALATION OF FOOD AND VOMIT Attending: DECLAN RAINES Current LOS: 5 Anticipated DC Date: 12-24-2018 Planned Disposition: Inpatient Rehab Primary Insurance: MEDICARE A & B PLANNED EXTERNAL PROVIDER: [facility] INPATIENT REHAB Discharge Planning Comments: CM SPOKE TO JANAK OF INPATIENT REHAB, THEY PLAN TO ACCEPT PT TODAY FOR REHAB. PT NOTIFIED, IN AGREEMENT WITH DISCHARGE TO INPATIENT REHAB. IMPORTANT MESSAGE FROM MEDICARE PROVIDED AND EXPLAINED. [facility] INPATIENT REHAB TO CONTACT MED 2 NURSE WITH ROOM NUMBER WHEN READY TO ACCEPT PT AND NURSE REPORT. Distribution Spec: Zoltan Soto DCP- Discharge Planning Updated by [id number]: Zoltan Soto on 12/21/18 11:[address] Patient Name: NERIS CARTWRIGHT Encounter No: [id number] : 1935 Primary Insurance: MEDICARE A & B Anticipated DC Date: 12-22-2018 Planned Disposition: Inpatient Rehab External Planned Provider: [facility] INPATIENT RHEAB DISCHARGE PLANNING NOTE: CM RECEIVED INPATIENT REHAB PRESCREENING ORDER, MET WITH PT IN ROOM TO DISCUSS DISCHARGE PLANNING AND NEEDS. PT REPORTS LIVING AT [facility] LIVING APARTMENT ALONE. PT HAS CANE AND WALKER WITH SEAT AND BRAKES WITH NO MEDICAL EQUIPMENT PROVIDER PREFERENCE. PT HAS NO OUTSIDE SERVICES ASSISTING IN THE HOME. CM DISCUSSED AVAILABILITY OF HOME HEALTH, REHAB SERVICES AND MEDICAL EQUIPMENT. PT WOULD LIKE REHAB AT [place]. PT FEELS THAT IN THE FUTURE, SHE MAY NEED TO MOVE INTO THE ASSISTED LIVING AT [facility], SHE IS NOT SURE AT THIS TIME. IMPORTANT MESSAGE FROM MEDICARE PROVIDED AND EXPLAINED. CM WAITING INPATIENT REHAB PRESCREENING AND ADMISSION DETERMINATION FROM [facility] INPATIENT REHAB. CM TO FOLLOW AND ASSIST NEEDED. Zoltan Soto, CASE MANAGEMENT DCPIA - Discharge Planning Initial Assessment Updated by [id number]: Zoltan Soto on 12/21/18 12:50 pm * Is the patient Alert and Oriented? Yes * How many steps to enter\exit or inside your home? NONE * PCP DR. WEBSTER * Pharmacy [facility] ON [address] * Preadmission Environment Independent [facility] Apartment * Other Environment APARTMENT * Facility Name [facility] * ADLs Independent * Equipment Cane Rolling Walker * Other Equipment 4 WHEELED WALKER WITH SEAT AND BRAKES NO MEDICAL EQUIPMENT PROVIDER PREFERENCE * List name and contact numbers for known caregivers / representatives who currently or will assist patient after discharge: HUSSAIN CARTWRIGHT, DTR IN LAW, * Verbal permission to speak to the caregivers and representatives has been obtained from the patient. N/A * Community resources currently utilized None * Please name any agencies selected above. NONE * Additional services required to return to the preadmission environment? Yes * Can the patient safely return to the preadmission environment? Yes * Has this patient been hospitalized within the prior 30 days at any hospital? Yes Coverage Notice Reviewer: [id number] - Zoltan Soto Notice Issued Date-Time: 12/24/2018 13:35 Notice Type: IM Discharge Notice Notice Delivered To: Patient Relationship to Patient: Senior Interaction Designer Name: Delivery Method: HAND - Hand Delivered Tita Days: Prior Verbal Notification: Recipient Understood Notice: Yes Recipient Signature: Yes Med Rec Note Co-signed by Attending: Coverage Notice Comment: Last DP export: 12/24/18 1:14 p Patient Name: NERIS CARTWRIGHT Page 24141 at 1424 All edits/amendments must be made on the electronic document DICTATION DATE: 12/24/181423 MAIL CENSOR: DM 12/24/181423 RPT#: [id number] DC DATE: STATUS: ADM IN [facility] [address] [place] [address] END OF REPORT
--- NOTE | 2018-12-24 14:50 | MORECARE ---
CASE MANAGEMENT DISCHARGE SUMMARY PATIENT: NERIS CARTWRIGHT UNIT: [id number] ADM DATE: 12/19/18 AGE: 83 : 36 SEX: F ROOM/BED: D.2103 AUTHOR: ISRAEL,DOC PHYSICIAN: REFERRING PHYSICIAN: DECLAN RAINES MD DATE OF SERVICE: 12/24/18 Discharge Plan Patient Name: NERIS CARTWRIGHT Facility: [facility]:[place] : 1935 Planned Disposition: Inpatient Rehab Anticipated Discharge Date: 12/24/18 Discharge Date: Expected LOS: 5 Initial Reviewer: [id number] Initial Review Date: 12/21/2018 Generated: 12/24/18 3:49 pm Comments DCP- Discharge Planning Updated by [email or web address]: Zoltan Soto on 12/24/18 1:[address] Patient Name: NERIS CARTWRIGHT Admission Status: ER Accout number: [id number] Admission Date: 12-19-2018 : 1935 Admission Diagnosis:PNEUMONITIS DUE TO INHALATION OF FOOD AND VOMIT Attending: DECLAN RAINES Current LOS: 5 Anticipated DC Date: 12-24-2018 Planned Disposition: Inpatient Rehab Primary Insurance: MEDICARE A & B PLANNED EXTERNAL PROVIDER: [facility] INPATIENT REHAB Discharge Planning Comments: CM SPOKE TO JANAK OF INPATIENT REHAB, THEY PLAN TO ACCEPT PT TODAY FOR REHAB. PT NOTIFIED, IN AGREEMENT WITH DISCHARGE TO INPATIENT REHAB. IMPORTANT MESSAGE FROM MEDICARE PROVIDED AND EXPLAINED. [facility] INPATIENT REHAB TO CONTACT MED 2 NURSE WITH ROOM NUMBER WHEN READY TO ACCEPT PT AND NURSE REPORT. Special Needs Nanny: Zoltan Soto DCP- Discharge Planning Updated by [id number]: Zoltan Soto on 12/21/18 11:[address] Patient Name: NERIS CARTWRIGHT Encounter No: [id number] : 1935 Primary Insurance: MEDICARE A & B Anticipated DC Date: 12-22-2018 Planned Disposition: Inpatient Rehab External Planned Provider: [facility] INPATIENT RHEAB DISCHARGE PLANNING NOTE: CM RECEIVED INPATIENT REHAB PRESCREENING ORDER, MET WITH PT IN ROOM TO DISCUSS DISCHARGE PLANNING AND NEEDS. PT REPORTS LIVING AT [facility] LIVING APARTMENT ALONE. PT HAS CANE AND WALKER WITH SEAT AND BRAKES WITH NO MEDICAL EQUIPMENT PROVIDER PREFERENCE. PT HAS NO OUTSIDE SERVICES ASSISTING IN THE HOME. CM DISCUSSED AVAILABILITY OF HOME HEALTH, REHAB SERVICES AND MEDICAL EQUIPMENT. PT WOULD LIKE REHAB AT [place]. PT FEELS THAT IN THE FUTURE, SHE MAY NEED TO MOVE INTO THE ASSISTED LIVING AT [facility], SHE IS NOT SURE AT THIS TIME. IMPORTANT MESSAGE FROM MEDICARE PROVIDED AND EXPLAINED. CM WAITING INPATIENT REHAB PRESCREENING AND ADMISSION DETERMINATION FROM [facility] INPATIENT REHAB. CM TO FOLLOW AND ASSIST NEEDED. Zoltan Soto, CASE MANAGEMENT DCPIA - Discharge Planning Initial Assessment Updated by [id number]: Zoltan Soto on 12/21/18 12:50 pm * Is the patient Alert and Oriented? Yes * How many steps to enter\exit or inside your home? NONE * PCP DR. WEBSTER * Pharmacy [facility] ON [address] * Preadmission Environment Independent [facility] Apartment * Other Environment APARTMENT * Facility Name [facility] * ADLs Independent * Equipment Cane Rolling Walker * Other Equipment 4 WHEELED WALKER WITH SEAT AND BRAKES NO MEDICAL EQUIPMENT PROVIDER PREFERENCE * List name and contact numbers for known caregivers / representatives who currently or will assist patient after discharge: HUSSAIN CARTWRIGHT, DTR IN LAW, * Verbal permission to speak to the caregivers and representatives has been obtained from the patient. N/A * Community resources currently utilized None * Please name any agencies selected above. NONE * Additional services required to return to the preadmission environment? Yes * Can the patient safely return to the preadmission environment? Yes * Has this patient been hospitalized within the prior 30 days at any hospital? Yes Coverage Notice Reviewer: [id number] - Zoltan Soto Notice Issued Date-Time: 12/24/2018 13:35 Notice Type: IM Discharge Notice Notice Delivered To: Patient Relationship to Patient: Windows Server Specialist Name: Delivery Method: HAND - Hand Delivered Tita Days: Prior Verbal Notification: Recipient Understood Notice: Yes Recipient Signature: Yes Med Rec Note Co-signed by Attending: Coverage Notice Comment: Last DP export: 12/24/18 1:24 p Patient Name: NERIS CARTWRIGHT Page 45200 at 1450 All edits/amendments must be made on the electronic document DICTATION DATE: 12/24/181448 BOTTLE WASHING MACHINE OPERATOR: DM 12/24/181448 RPT#: [id number] DC DATE: STATUS: ADM IN [facility] [address] [place] [address] END OF REPORT
--- NOTE | 2018-12-24 15:15 | NUR ---
ORDER TO TRANSFER TO INPATIENT REHAB. AFTER CHECKING THE NOTE LEFT FROM SILVANA DIRECTOR OF GUIDANCE IN [employer] FOR DR PANG I CALLED AND SHE SAID IT WAS UP TO DR RAINES SINCE SHE HAS BEEN UNABLE TO HAVE A BM TO COLLECT FOR STOOL QUIAC AND HER H/H IS LOWER THIS AM. PETE WAS MAKING ROUNDS A FEW MINUTES AGO SO SHE WAS PAGED TO SEE IF IT WAS OK TO D/C.
--- NOTE | 2018-12-24 15:30 | NUR ---
ORDER TO CANCEL TRANSFER FROM PETE AND FROM DR RAINES WHEN HE WAS MAKING ROUNDS. BOTH HER AND HER SON WHO IS AT BEDSIDE ARE AWARE OF CANCEL OF TRANSFER TO INPAITENT REHAB.
--- NOTE | 2018-12-24 16:14 | NUR ---
STOOL SPECIMEN COLLECTED AND TAKEN TO LAB AT THIS TIME.
--- NOTE | 2018-12-24 16:30 | NUR ---
KERRY AT REHAB WAS CALLED AND TOLD SHE WOULD NOT BE TRANSFERRED TO THEM TODAY.
--- NOTE | 2018-12-24 17:43 | NUR ---
CL IN REACH SON AT BEDSIDE CONTINUE CURRENT POC. DENIES ANY C/O AT THIS TIME
--- NOTE | 2018-12-24 18:20 | NUR ---
STOOL RESULT WAS NEGATIVE FOR BLOOD. HER AND SON ARE AWARE.
--- NOTE | 2018-12-24 19:41 | NUR ---
EVENING ROUNDS COMPLETED. REPORT RECEIVED. PT SITTING UP IN BED WITH EYES OPEN, RR EVEN AND UNLABORED. BED IN LOW POSITION. NO S/S OF DISTRESS NOTED. INTRODUCED SELF TO PT AND SON. PT DENIES FURTHER NEEDS AT THIS TIME. CALL LIGHT IN REACH. WILL CTM.
[2018-12-24 20:00] VITALS: BP 119/55
--- NOTE | 2018-12-24 22:33 | NUR ---
I have reviewed this patient and I concur with the Shift Assessment completed by the Licensed Practical Nurse today this shift.
--- NOTE | 2018-12-24 23:46 | NUR ---
RECIEVED REPORT FROM RHIANNA ESQUEDA. RECIEVED RESTING IN BED WITH EYES CCLOSED AND DTR AT BESIDE. EASILY AROUSES WITH VERBAL STIMULI. C/O NOT HAVING A BM TODAY AND STATES " I HAVE ONE EVERY DAY EXCEPT TODAY". EXPLAINED I WOULD REPORT TO DAY SHIFT AND TO LET HER MD KNOW WHEN HE ROUNDS TOMORROW. DENIES ANY OTHER NEES.
[2018-12-25] VITALS: BP 113/62
[2018-12-25 03:16] LABS: BASOPHILS 0.1 % (0-2); EOSINOPHILS 0.7 % (0-7); HEMATOCRIT 23.4 % (36.0-48.0); HEMOGLOBIN 8.1 g/dL (12-16); IMMATURE GRANULOCYTES 12.9 % (0-5); LYMPHOCYTES 8.3 % (15-50); MCH 30.2 pg (26.0-34.0); MCHC 34.6 g/dL (31.0-37.0); MCV 87.3 fL (80.0-100.0); MEAN PLATELET VOLUME 8.7 fL (7.4-10.4); MONOCYTES 8.6 % (2-11); NEUTROPHILS 69.4 % (40-80); PLATELET COUNT 346 10x3/uL (130-400); RBC 2.68 10x6/uL (4.00-5.40); WBC 13.4 10x3/uL (4.8-10.8)
[2018-12-25 03:36] LABS: ALBUMIN 1.8 g/dL (3.4-5.0); ALKALINE PHOSPHATASE 67 U/L (46-116); ALT (SGPT) 34 U/L (10-68); BILIRUBIN - TOTAL 0.76 mg/dL (0.2-1.3); CALC OSMOLALITY 272 mosm/kg (275-300); CALCIUM 8.5 mg/dL (8.5-10.1); CARBON DIOXIDE 25.6 mmol/L (21.0-32.0); CHLORIDE - SERUM 101 mmol/L (98-107); CREATININE - SERUM 0.6 mg/dL (0.6-1.3); GLUCOSE 104 mg/dL (74-106); MAGNESIUM - SERUM 2.2 mg/dL (1.8-2.4); POTASSIUM - SERUM 3.4 mmol/L (3.5-5.1); PROTEIN - SERUM 5.7 g/dL (6.4-8.2); SODIUM 136 mmol/L (136-145); UREA NITROGEN 14 mg/dL (7-18); eGFR NON AFRICAN AMERICAN > 90 mL/min (90-120)
[2018-12-25 04:00] VITALS: BP 106/65
--- NOTE | 2018-12-25 07:00 | NUR ---
RECIEVED REPORT. ASSUMED CARE OF PATIENT. NO DISTRESS. RESTING IN BED WITH EYES CLOSED. EASILY AROUSED. RESP EVEN AND UNLABORED.
[2018-12-25 08:54] VITALS: BP 120/59
--- NOTE | 2018-12-25 09:10 | NUR ---
PT AT BEDSIDE ASSISTING PATIENT TO CHAIR. NO DISTRESS.
--- NOTE | 2018-12-25 12:39 | NUR ---
PATIENT RECEIVING BLOOD TRANSFUSION AT THIS TIME. BLOOD TRANSFUSION INITIATED AT 1235. PATIENT SON AT BEDSIDE. PATIENT SITTING UP IN BED WITH ATTENTION TOWARD TELEVISION. CALL LIGHT WITHIN REACH. NO DISTRESS. NO COMPLAINTS AT THIS TIME.
--- NOTE | 2018-12-25 13:29 | NUR ---
CONTINUES TO TOLERATED BLOOD TRANSFUSION WELL. PATIENT RESTING WITH EYES CLOSED. PATIENTS SON REMAINS AT BEDSIDE. NO DISTRESS. CALL LIGHT WITHIN REACH.
--- NOTE | 2018-12-25 15:02 | NUR ---
BP 111/64. TOLERATED 1 UNIT BLOOD BEING WELL. BLOOD TRANSFUSION COMPLETE AT THIS TIME. NO DISTRESS. CALL LIGHT WITHIN REACH.
[2018-12-25 16:41] VITALS: BP 128/62
--- NOTE | 2018-12-25 17:32 | NUR ---
SITTING TO SIDE OF BED CONSUMING PM MEAL. FAMILY AT BEDSIDE. NO DISTRESS. CALL LIGHT WIHTIN REACH.
[2018-12-25 20:00] VITALS: BP 102/62
--- NOTE | 2018-12-25 21:03 | NUR ---
RECIEVED UP IN BED WITH EYES OPEN AND TV ON. SON AT BEDSIDE. BALERT AND ORIENTED X4. REQUIRES ASSIST X1 TO TRANSFER TO CHAIR. INCONT OF URINE. WEARS BRIEF AND CHANGES WHEN GOES TO B/R. USES BEDPAN IN BED. O2@ 2 LITES PER N/C. IV TO RIGHT FA. PURPLE COLOR BRUISE TO LEFT FA. HANDS DISFIGURED D/T RA. TELEMETRY IN PLACE. C/O GENERALIZED PAIN ALL OVER. TYLENOL GIVEN PER ORDERS.
[2018-12-26] VITALS: BP 101/66
[2018-12-26 03:49] LABS: BASOPHILS 0.4 % (0-2); EOSINOPHILS 0.9 % (0-7); HEMATOCRIT 26.1 % (36.0-48.0); HEMOGLOBIN 8.8 g/dL (12-16); IMMATURE GRANULOCYTES 11.6 % (0-5); LYMPHOCYTES 7.8 % (15-50); MCH 29.3 pg (26.0-34.0); MCHC 33.7 g/dL (31.0-37.0); MEAN PLATELET VOLUME 8.9 fL (7.4-10.4); MONOCYTES 6.6 % (2-11); NEUTROPHILS 72.7 % (40-80); PLATELET COUNT 401 10x3/uL (130-400); RDW 14.9 % (11.5-14.5); WBC 12.9 10x3/uL (4.8-10.8)
[2018-12-26 03:52] LABS: CALC OSMOLALITY 276 mosm/kg (275-300); CALCIUM 8.4 mg/dL (8.5-10.1); CARBON DIOXIDE 26.3 mmol/L (21.0-32.0); CHLORIDE - SERUM 104 mmol/L (98-107); CREATININE - SERUM 0.6 mg/dL (0.6-1.3); GLUCOSE 107 mg/dL (74-106); POTASSIUM - SERUM 3.7 mmol/L (3.5-5.1); SODIUM 138 mmol/L (136-145); UREA NITROGEN 14 mg/dL (7-18); eGFR NON AFRICAN AMERICAN > 90 mL/min (90-120)
[2018-12-26 04:00] VITALS: BP 119/64
[2018-12-26 04:16] LABS: LYMPHOCYTES 10 % (15-50); MONOCYTES 5 % (2-11); NEUTROPHILS 73 % (40-80); PLATELET ESTIMATE NORMAL
--- NOTE | 2018-12-26 07:00 | NUR ---
RECEIVED REPORT. ASSUMED CARE OF PATIENT. CALL LIGHT WITHIN REACH. RESTING IN BED WITH EYES CLOSED. RESP EVEN AND UNLABORED. NO DISTRESS. NO FAMILY AT BEDSIDE. SR UP FOR SAFETY. SCD PATENT BILATERALLY.
[2018-12-26 07:57] VITALS: BP 118/66
--- NOTE | 2018-12-26 08:20 | NUR ---
JEAN FREEMAN ON UNIT FOR ROUNDS. THIS CEMENTER MACHINE APPLICATOR ASKS IF PATIENTS SYNTHROID WILL BE RESTARTED AND ALSO THAT PATIENT IS REQUESTING A STOOL SOFTNER. PETE WROTE IT ON HER ROUNDING LIST AND SAID SHE WOULD LOOK INTO ORDERING THESE MEDICATIONS.
--- NOTE | 2018-12-26 09:45 | NUR ---
RESTING PEACEFULLY. EASILY AROUSED. NO DISTRESS. CALL LIGHT WITHIN REACH.
--- NOTE | 2018-12-26 11:32 | NUR ---
ASSISTED PATIENT ON AND OFF OF BEDPAN. NO DISTRESS. CALL LIGHT WITHIN REACH.
[2018-12-26 11:57] VITALS: BP 120/59
--- NOTE | 2018-12-26 14:52 | NUR ---
PATIENTS SON AT BEDSIDE IN RECLINER CHAIR. PATIENT RESTING IN BED WITH EYES CLOSED. RESP EVEN AND UNLABORED. NO DISTRESS.
[2018-12-26 15:57] VITALS: BP 125/62
--- NOTE | 2018-12-26 17:30 | NUR ---
ASSISTED PATIENT OOB TO RESTROOM WITH WALKER. LINEN CHANGE PROVIDED DUE TO PATIENT WAS SWEATY. ASSISTED PATIENT BACK TO BED. CALL LIGHT WITHIN REACH. SR UP FOR SAFETY. PATIENT SON AT BEDSIDE. NO DISTRESS. DENIES ANY FURTHER NEEDS.
--- NOTE | 2018-12-26 20:20 | NUR ---
RECIEVED UP IN B/R. CAME BACK AND FLUSHED IV AND DICONNECTED IT. AMBULATED FROM BATHROOM WITH WALKER AND SBA. ASSISTED TO BED WITH EXTENSIVE ASSIT. LUNG SOUNDS CLEAR AND BSX4Q. NO EDEMA OBSERVED. DENIES ANY OTHER NEEDS AT THIS TIME.
[2018-12-26 20:35] VITALS: BP 104/61
[2018-12-27 01:13] VITALS: BP 130/57
[2018-12-27 04:26] LABS: BASOPHILS 0.3 % (0-2); EOSINOPHILS 1.1 % (0-7); HEMATOCRIT 27.2 % (36.0-48.0); HEMOGLOBIN 9.2 g/dL (12-16); IMMATURE GRANULOCYTES 10.1 % (0-5); MCH 29.6 pg (26.0-34.0); MCHC 33.8 g/dL (31.0-37.0); MCV 87.5 fL (80.0-100.0); MEAN PLATELET VOLUME 8.6 fL (7.4-10.4); MONOCYTES 6.2 % (2-11); NEUTROPHILS 73.3 % (40-80); PLATELET COUNT 445 10x3/uL (130-400); RBC 3.11 10x6/uL (4.00-5.40); RDW 15.1 % (11.5-14.5); WBC 10.7 10x3/uL (4.8-10.8)
[2018-12-27 04:37] LABS: CALC OSMOLALITY 279 mosm/kg (275-300); CALCIUM 8.4 mg/dL (8.5-10.1); CARBON DIOXIDE 28.9 mmol/L (21.0-32.0); CHLORIDE - SERUM 105 mmol/L (98-107); CREATININE - SERUM 0.5 mg/dL (0.6-1.3); GLUCOSE 88 mg/dL (74-106); POTASSIUM - SERUM 3.6 mmol/L (3.5-5.1); SODIUM 141 mmol/L (136-145); UREA NITROGEN 12 mg/dL (7-18); eGFR NON AFRICAN AMERICAN > 90 mL/min (90-120)
[2018-12-27 05:26] VITALS: BP 125/59
--- NOTE | 2018-12-27 07:26 | NUR ---
PT UP TO RESTROOM WITH STANDBY ASSIST. PT ALERT AND ORIENTED X3. VITALS STABLE. PT STATES THAT SHE HASN'T HAD SYNTHROID SINCE SHE'S BEEN HERE. WILL CALL DOCTOR. BED LOW CALL LIGHT WITHIN REACH. WILL CONTINUE TO MONITOR.
[2018-12-27 08:16] VITALS: BP 124/70
[2018-12-27 11:36] VITALS: BP 129/66
--- NOTE | 2018-12-27 12:09 | MORECARE ---
CASE MANAGEMENT DISCHARGE SUMMARY PATIENT: NERIS CARTWRIGHT UNIT: [id number] ADM DATE: 12/19/18 AGE: 83 : 36 SEX: F ROOM/BED: D.2103 AUTHOR: ISRAEL,DOC PHYSICIAN: REFERRING PHYSICIAN: DECLAN RAINES MD DATE OF SERVICE: 12/27/18 Discharge Plan Patient Name: NERIS CARTWRIGHT [facility] [facility] 1935 Planned Disposition: Inpatient Rehab Anticipated Discharge Date: 12/24/18 Discharge Date: Expected LOS: 5 Initial Reviewer: [email or web address] Initial Review Date: 12/21/2018 Generated: 12/27/18 1:09 pm Comments DCP- Discharge Planning Updated by [email or web address]: Kati Denis on 12/27/18 11:[address] WAS ASKED BY MD IF PATIENT WOULD BE ABLE TO DISCHARGE TO INPATIENT REHAB TODAY. I CALLED AND SPOKE WITH WONG IN REHAB AT EXT 1160, AND SHE STATED THAT ELIDIA WAS ONCALL FOR REHAB INTAKE AND I WAS GIVEN HER PHONE NUMBER TO CALL HER. @ 1012 I CALLED AND LEFT HER A VOICEMAIL EXPLAINING WHAT MD WAS ASKING. I WILL WAIT FOR RETURN CALL. DCP- Discharge Planning Updated by [id number]: Zoltan Soto on 12/24/18 1:[address] Patient Name: NERIS CARTWRIGHT Admission Status: ER Accout number: [id number] Admission Date: 12-19-2018 : 1935 Admission Diagnosis:PNEUMONITIS DUE TO INHALATION OF FOOD AND VOMIT Attending: DECLAN RAINES Current LOS: 5 Anticipated DC Date: 12-24-2018 Planned Disposition: Inpatient Rehab Primary Insurance: MEDICARE A & B PLANNED EXTERNAL PROVIDER: [facility] INPATIENT REHAB Discharge Planning Comments: CM SPOKE TO JANAK OF INPATIENT REHAB, THEY PLAN TO ACCEPT PT TODAY FOR REHAB. PT NOTIFIED, IN AGREEMENT WITH DISCHARGE TO INPATIENT REHAB. IMPORTANT MESSAGE FROM MEDICARE PROVIDED AND EXPLAINED. [facility] INPATIENT REHAB TO CONTACT MED 2 NURSE WITH ROOM NUMBER WHEN READY TO ACCEPT PT AND NURSE REPORT. Electronic Assembler: Zoltan Soto DCP- Discharge Planning Updated by [id number]: Zoltan Soto on 12/21/18 11:[address] Patient Name: NERIS CARTWRIGHT Encounter No: [id number] : 1935 Primary Insurance: MEDICARE A & B Anticipated DC Date: 12-22-2018 Planned Disposition: Inpatient Rehab External Planned Provider: [facility] INPATIENT RHEAB DISCHARGE PLANNING NOTE: CM RECEIVED INPATIENT REHAB PRESCREENING ORDER, MET WITH PT IN ROOM TO DISCUSS DISCHARGE PLANNING AND NEEDS. PT [facility] PT HAS CANE AND WALKER WITH SEAT AND BRAKES WITH NO MEDICAL EQUIPMENT PROVIDER PREFERENCE. PT HAS NO OUTSIDE SERVICES ASSISTING IN THE HOME. CM DISCUSSED AVAILABILITY OF HOME HEALTH, REHAB SERVICES AND MEDICAL EQUIPMENT. PT WOULD LIKE REHAB AT [place]. PT FEELS THAT IN THE FUTURE, SHE MAY NEED TO MOVE INTO THE ASSISTED LIVING AT [facility], SHE IS NOT SURE AT THIS TIME. IMPORTANT MESSAGE FROM MEDICARE PROVIDED AND EXPLAINED. CM WAITING INPATIENT REHAB PRESCREENING AND ADMISSION DETERMINATION FROM [facility] INPATIENT REH[facility]. CM TO FOLLOW AND ASSIST NEEDED. Zoltan Soto, CASE MANAGEMENT DCPIA - Discharge Planning Initial Assessment Updated by [id number]: Zoltan Soto on 12/21/18 12:50 pm * Is the patient Alert and Oriented? Yes * How many steps to enter\exit or inside your home? NONE * PCP DR. WEBSTER * Pharmacy [facility] ON [address] * Preadmission Environment Independent [facility] Apartment * Other Environment APARTMENT * Facility Name [facility] * ADLs Independent * Equipment Cane Rolling Walker * Other Equipment 4 WHEELED WALKER WITH SEAT AND BRAKES NO MEDICAL EQUIPMENT PROVIDER PREFERENCE * List name and contact numbers for known caregivers / representatives who currently or will assist patient after discharge: HUSSAIN CARTWRIGHT DTR IN LAW, * Verbal permission to speak to the caregivers and representatives has been obtained from the patient. N/A * Community resources currently utilized None * Please name any agencies selected above. NONE * Additional services required to return to the preadmission environment? Yes * Can the patient safely return to the preadmission environment? Yes * Has this patient been hospitalized within the prior 30 days at any hospital? Yes Coverage Notice Reviewer: [id number] Aden Soto Notice Issued Date-Time: 12/24/2018 13:35 Notice Type: IM Discharge Notice Notice Delivered To: Patient Relationship to Patient: Luster Repairer Name: Delivery Method: HAND - Hand Delivered Tita Days: Prior Verbal Notification: Recipient Understood Notice: Yes Recipient Signature: Yes Med Rec Note Co-signed by Attending: Coverage Notice Comment: Last DP export: 12/24/18 1:50 p Patient Name: NERIS CARTWRIGHT Page 78886 at 1209 All edits/amendments must be made on the electronic document DICTATION DATE: 12/27/181208 WEB PRODUCTION MANAGER: DEMARCO 12/27/18 1209 RPT#: [id number] DC DATE: STATUS: ADM IN [facility] [address] [place] [address] END OF REPORT
[2018-12-27 15:40] VITALS: BP 121/69
--- NOTE | 2018-12-27 19:23 | NUR ---
RECIEVED UP IN BED WITH EYES OPEN. AND TV ON. ALERT AND ORIENTED X4. UP WITH WALKER AND ASSIST X1. UNABLE TO SIT UP ON HER OWN.IV TO RIGHT FA SL.. O2@ 2 LITERS PER N/C. PACEMAKER TO LEFT CHEST. RA TO HANDS AND FINGERS DISFIGURED. SCD'S IN PLACE AND REMOVED TO CHECK SKIN. DENIES ANY NEEDS AT THIS TIME.
[2018-12-27 20:00] VITALS: BP 117/59
[2018-12-28] VITALS: BP 123/61
[2018-12-28 04:00] VITALS: BP 111/61
[2018-12-28 05:34] LABS: BASOPHILS 0.4 % (0-2); EOSINOPHILS 1.2 % (0-7); HEMATOCRIT 26.9 % (36.0-48.0); IMMATURE GRANULOCYTES 4.8 % (0-5); LYMPHOCYTES 7.5 % (15-50); MCH 29.5 pg (26.0-34.0); MCHC 33.5 g/dL (31.0-37.0); MCV 88.2 fL (80.0-100.0); MEAN PLATELET VOLUME 8.4 fL (7.4-10.4); MONOCYTES 6.7 % (2-11); NEUTROPHILS 79.4 % (40-80); PLATELET COUNT 433 10x3/uL (130-400); RBC 3.05 10x6/uL (4.00-5.40); RDW 15.3 % (11.5-14.5); WBC 10.4 10x3/uL (4.8-10.8)
[2018-12-28 05:50] LABS: CALC OSMOLALITY 281 mosm/kg (275-300); CALCIUM 8.2 mg/dL (8.5-10.1); CARBON DIOXIDE 27.9 mmol/L (21.0-32.0); CHLORIDE - SERUM 106 mmol/L (98-107); CREATININE - SERUM 0.5 mg/dL (0.6-1.3); GLUCOSE 94 mg/dL (74-106); POTASSIUM - SERUM 3.8 mmol/L (3.5-5.1); SODIUM 142 mmol/L (136-145); UREA NITROGEN 11 mg/dL (7-18); eGFR NON AFRICAN AMERICAN > 90 mL/min (90-120)
--- NOTE | 2018-12-28 07:10 | NUR ---
REPORT RECIEVED FROM ASSISTANT EXECUTIVE HOUSEKEEPER AND PATIENT CARE ASSUMED. PATIENT LAYIN IN BED ON BACK WITH EYES CLOSED AND BREATHING EVENLY. PATIENT IS STABLE AND VSS. WILL CONTINUE WITH PLAN OF CARE.
[2018-12-28 08:08] VITALS: BP 121/64
--- NOTE | 2018-12-28 10:19 | NUR ---
PATIENT UP TO BR WITH ASSISTANCE. PATIENT TOLERATED WELL. PATIENT DENIES ANY NEEDS OR PAIN. WILL CONTINUE TO MONITOR.
[2018-12-28 11:41] VITALS: BP 112/67
--- NOTE | 2018-12-28 12:11 | NUR ---
OT NOTE: PT VERY FRUSTRATED IN AM REGARDING HER MEDS. STATES THAT SHES TALKED TO NUMEROUS STAFF INCLUDING NURSES, CNAS, AND DOCTORS REGARDING A CERTAIN THYROID MED. WENDY, HER NURSE TODAY WHO HAS NOT HAD HER A PT STATED THAT SHE WOULD TALK TO DR TODAY. THIS MADE PT FEEL BETTER. PERFORMED BED MOB VERY MINIMAL ASSIST; ABLE TO EFRAIN GOWN WITH MIN ASSIST; MOD ASSIST TO FIX SOCKS; SIMPLE GROOMING WITH SET UP; ABLE TO AMB INTO HALLWAY WITH WALKER, [place], AND 02 WITH MIN ASSIST TO IMPROVE FUNCTIONAL ENURANCE. VERBAL CUES FOR UPRIGHT POSTURE. TRANSFERRED TO CHAIR WITH MIN ASSIST. POSITIONED WITH TABLE SET UP FOR HER. NO OTHER NEEDS REPORTED. WILDER ULLOA, OTR/L
--- NOTE | 2018-12-28 12:12 | NUR ---
Nutrition follow-up: Visited with pt and pt states her appetite is still poor. Pt reports she is trying to eat more; states that her son ate her meals last week. RDN helped pt with menu selections for today. Diet: Low sodium PO intake < 50% of meals at this time Pt discharging to rehab soon Labs reviewed RDN will continue to encourage increased po intake and offer nutritional supplements.
--- NOTE | 2018-12-28 12:37 | MORECARE ---
CASE MANAGEMENT DISCHARGE SUMMARY PATIENT: NERIS CARTWRIGHT UNIT: [id number] ADM DATE: 12/19/18 AGE: 83 : 36 SEX: F ROOM/BED: D.2103 AUTHOR: ISRAEL,DOC PHYSICIAN: REFERRING PHYSICIAN: DECLAN RAINES MD DATE OF SERVICE: 12/28/18 Discharge Plan Patient Name: NERIS CARTWRIGHT [facility] [facility] 1935 Planned Disposition: Inpatient Rehab Anticipated Discharge Date: 12/28/18 Discharge Date: Expected LOS: 9 Initial Reviewer: [id number] Initial Review Date: 12/21/2018 Generated: 12/28/18 1:37 pm Comments DCP- Discharge Planning Updated by [id number]: Zoltan Soto on 12/28/18 11:[address] Patient Name: NERIS CARTWRIGHT Encounter No: [id number] : 1935 Primary Insurance: MEDICARE A & B Anticipated DC Date: 12-28-2018 Planned Disposition: Inpatient Rehab External Planned Provider:[facility] INPATIENT REHAB Discharge Planning Comments: CM SPOKE TO GALLO OF INPATIENT REHAB, THEY PLAN TO ACCEPT PT TODAY FOR REHAB. PT NOTIFIED, IN AGREEMENT WITH DISCHARGE TO INPATIENT REHAB. IMPORTANT MESSAGE FROM MEDICARE PROVIDED AND EXPLAINED. [facility] INPATIENT REHAB TO CONTACT MED 2 NURSE WITH ROOM NUMBER WHEN READY TO ACCEPT PT AND NURSE REPORT. Chief Deputy: Zoltan Soto DCP- Discharge Planning Updated by [id number]: Kati Denis on 12/27/18 11:[address] WAS ASKED BY MD IF PATIENT WOULD BE ABLE TO DISCHARGE TO INPATIENT REHAB TODAY. I CALLED AND SPOKE WITH WONG IN REHAB AT EXT 1160, AND SHE STATED THAT ELIDIA WAS ONCALL FOR REHAB INTAKE AND I WAS GIVEN HER PHONE NUMBER TO CALL HER. @ 1012 I CALLED AND LEFT HER A VOICEMAIL EXPLAINING WHAT MD WAS ASKING. I WILL WAIT FOR RETURN CALL. DCP- Discharge Planning Updated by [id number]: Zoltan Soto on 12/24/18 1:[address] Patient Name: NERIS CARTWRIGHT Admission Status: ER Accout number: [id number] Admission Date: 12-19-2018 : 1935 Admission Diagnosis:PNEUMONITIS DUE TO INHALATION OF FOOD AND VOMIT Attending: DECLAN RAINES Current LOS: 5 Anticipated DC Date: 12-24-2018 Planned Disposition: Inpatient Rehab Primary Insurance: MEDICARE A & B PLANNED EXTERNAL PROVIDER: [facility] INPATIENT REHAB Discharge Planning Comments: CM SPOKE TO JANAK OF INPATIENT REHAB, THEY PLAN TO ACCEPT PT TODAY FOR REHAB. PT NOTIFIED, IN AGREEMENT WITH DISCHARGE TO INPATIENT REHAB. IMPORTANT MESSAGE FROM MEDICARE PROVIDED AND EXPLAINED. [facility] INPATIENT REHAB TO CONTACT MED 2 NURSE WITH ROOM NUMBER WHEN READY TO ACCEPT PT AND NURSE REPORT. Chief Deputy: Zoltan Soto DCP- Discharge Planning Updated by [email or web address]: Zoltan Soto on 12/21/18 11:[address] Patient Name: NERIS CARTWRIGHT Encounter No: [id number] : 1935 Primary Insurance: MEDICARE A & B Anticipated DC Date: 12-22-2018 Planned Disposition: Inpatient Rehab External Planned Provider: [facility] INPATIENT RHEAB DISCHARGE PLANNING NOTE: CM RECEIVED INPATIENT REHAB PRESCREENING ORDER, MET WITH PT IN ROOM TO DISCUSS DISCHARGE PLANNING AND NEEDS. PT REPORTS LIVING AT [facility] APARTMENT ALONE. PT HAS CANE AND WALKER WITH SEAT AND BRAKES WITH NO MEDICAL EQUIPMENT PROVIDER PREFERENCE. PT HAS NO OUTSIDE SERVICES ASSISTING IN THE HOME. CM DISCUSSED AVAILABILITY OF HOME HEALTH, REHAB SERVICES AND MEDICAL EQUIPMENT. PT WOULD LIKE REHAB AT [place]. PT FEELS THAT IN THE FUTURE, SHE MAY NEED TO MOVE INTO THE ASSISTED LIVING AT [facility], SHE IS NOT SURE AT THIS TIME. IMPORTANT MESSAGE FROM MEDICARE PROVIDED AND EXPLAINED. CM WAITING INPATIENT REHAB PRESCREENING AND ADMISSION DETERMINATION FROM [facility] INPATIENT REHAB. CM TO FOLLOW AND ASSIST NEEDED. Zoltan Soto, CASE MANAGEMENT DCPIA - Discharge Planning Initial Assessment Updated by [id number]: Zoltan Soto on 12/21/18 12:50 pm * Is the patient Alert and Oriented? Yes * How many steps to enter\exit or inside your home? NONE * PCP DR. WEBSTER * Pharmacy [facility] * Preadmission Environment Independent [facility] Apartment * Other Environment APARTMENT * Facility Name [facility] * ADLs Independent * Equipment Cane Rolling Walker * Other Equipment 4 WHEELED WALKER WITH SEAT AND BRAKES NO MEDICAL EQUIPMENT PROVIDER PREFERENCE * List name and contact numbers for known caregivers / representatives who currently or will assist patient after discharge: HUSSAIN CARTWRIGHT, DTR IN [employer], * Verbal permission to speak to the caregivers and representatives has been obtained from the patient. N/A * Community resources currently utilized None * Please name any agencies selected above. NONE * Additional services required to return to the preadmission environment? Yes * Can the patient safely return to the preadmission environment? Yes * Has this patient been hospitalized within the prior 30 days at any hospital? Yes Coverage Notice Reviewer: [id number] Soto Notice Issued Date-Time: 12/24/2018 13:35 Notice Type: IM Discharge Notice Notice Delivered To: Patient Relationship to Patient: Combination Technician Name: Delivery Method: HAND - Hand Delivered Tita Days: Prior Verbal Notification: Recipient Understood Notice: Yes Recipient Signature: Yes Med Rec Note Co-signed by Attending: Coverage Notice Comment: Reviewer: BREA Soto Notice Issued Date-Time: 12/28/2018 11:40 Notice Type: IM Discharge Notice Notice Delivered To: Patient Relationship to Patient: Combination Technician Name: Delivery Method: HAND - Hand Delivered Tita Days: Prior Verbal Notification: Recipient Understood Notice: Yes Recipient Signature: Yes Med Rec Note Co-signed by Attending: Coverage Notice Comment: Last DP export: 12/27/18 11:09 a Patient Name: NERIS CARTWRIGHT Page [id number] at 1237 All edits/amendments must be made on the electronic document DICTATION DATE: 12/28/18 1236 CCNA: DEMARCO 12/28/18 1236 RPT#: [id number] DC DATE: STATUS: ADM IN [facility] [address] [place] [address] END OF REPORT
--- NOTE | 2018-12-28 15:25 | NUR ---
OT NOTE: PT UPRIGHT IN CHAIR. PT COMPLETED SIT TO STAND WITH SBA. PT COMPLETED SITTING BALANCE WITH SBA/SPV. PT COMPLETED BUE AROM WITHIN PAIN FREE ZONE. PT COMPLETED SIMPLE HYGIENE TASK WITH SET UP. THANK YOU, RANDI DUNN
--- NOTE | 2018-12-28 16:30 | NUR ---
ORDERS RECEIVED FOR DC. PATIENT IS STABLE AND VSS. WRITTEN AND VERBAL INSTRUCTIONS GIVEN TO PATIENT. PATIENT VERBALIZED UNDERSTANDING AND SIGNED DC INSTRUCTIONS. CALLED REPORT TO REHAB NURSE. WAS INFORMED THAT PATIENT WILL GO TO ROOM 1117 B BUT ROOM HAS NOT BEEN CLEANED YET. THIS NURSE INFORMED THAT REHAB WILL CALL WHEN ROOM AVAILABLE.
[2018-12-28 17:20] VITALS: BP 118/61
--- NOTE | 2018-12-28 18:44 | NUR ---
HAVE NOT RECIEVED PHONE CALL FROM REHAB. CALLED REHAB AND SPOKE LELA. I WAS INFORMED THAT ROOM IS NOW [facility]. PATIENT TO REHAB VIA AND HOPSITAL PERSONNEL. PATIENT IS STABLE AND VSS.
== END 2018-12-28 18:46 | DRG 177 ==
LOC: D.ER 12:48 → D.M2 16:52
PROVIDERS: Family Medicine; ADMIT Internal Medicine Nephrology; ATTEND Internal Medicine Nephrology
DX: J69.0 Pneumonitis due to inhalation of food and vomit (principal); J96.01 Acute respiratory failure with hypoxia; W19.XXXA Unspecified fall, initial encounter; I48.2 Chronic atrial fibrillation; I10 Essential (primary) hypertension; M06.9 Rheumatoid arthritis, unspecified; E78.5 Hyperlipidemia, unspecified; D64.9 Anemia, unspecified; E87.6 Hypokalemia; E83.42 Hypomagnesemia; Z95.0 Presence of cardiac pacemaker; Z91.81 History of falling

== ENCOUNTER 2018-12-28 20:11 | Inpatient (IN) | payer MEDICARE, BC ==
[~2018-12-28] VITALS: Ht 162.6 cm; Wt 65.8 kg
--- NOTE | 2018-12-28 19:35 | NUR ---
PT ARRIVED VIA WHEELCHAIR WITH HOSPITAL STAFF. CALL LIGHT IN REACH. PT ASSISTED TO BED. DENIES NEEDS OR PAIN AT THIS TIME. VITALS WNL. WCTM.
[~2018-12-28 20:11] MED LIST: AMIODARONE HCL200 MG PO; ASPIRIN81 MG PO; CARTIA XT180 MG PO; CELEXA20 MG PO; ELIQUIS2.5 MG PO; ELIQUIS5 MG PO; ESTRACE 0.5 MG0.5 MG PO; GLUCOSAMINE HC500 MG PO; LANOXIN125 MCG PO; LEVAQUIN750 MG PO; MAXZIDE 75/501 TAB PO; MELATONIN5 MG PO; MERIBIN5 MG PO; OMEGA-3100 MG PO; OXYBUTYNIN CHLOR5 MG PO; POTASSIUM99 M1 PO; SYNTHROID25 MCG PO; TRICOR145 MG PO; VITAMIN B-121000 MCG PO; VITAMIN D5000 UNIT PO
[2018-12-28 22:45] VITALS: BP 133/76; BMI 24.9
--- NOTE | 2018-12-29 02:33 | NUR ---
RESTING IN BED WITH EYES CLOSED AND RESPIRATIONS UNLABORED. NO DISTRESS NOTED. CALL LIGHT IN REACH.
--- NOTE | 2018-12-29 02:40 | NUR ---
PT RESTING QUIETLY. CALL LIGHT IN REACH. EYES CLOSED. RESP EVEN AND UNLABORED. BED IN LOW. NO SIGNS OF DISTRESS OR PAIN. WCTM
[2018-12-29 06:45] LABS: BASOPHILS 0.4 % (0-2); EOSINOPHILS 1.5 % (0-7); HEMATOCRIT 28.7 % (36.0-48.0); HEMOGLOBIN 9.5 g/dL (12-16); IMMATURE GRANULOCYTES 3.9 % (0-5); LYMPHOCYTES 10.4 % (15-50); MCH 29.5 pg (26.0-34.0); MCHC 33.1 g/dL (31.0-37.0); MCV 89.1 fL (80.0-100.0); MEAN PLATELET VOLUME 8.5 fL (7.4-10.4); NEUTROPHILS 76.8 % (40-80); PLATELET COUNT 485 10x3/uL (130-400); RBC 3.22 10x6/uL (4.00-5.40); RDW 15.4 % (11.5-14.5); WBC 8.5 10x3/uL (4.8-10.8)
[2018-12-29 06:51] LABS: CALC OSMOLALITY 279 mosm/kg (275-300); CALCIUM 8.4 mg/dL (8.5-10.1); CARBON DIOXIDE 28.3 mmol/L (21.0-32.0); CHLORIDE - SERUM 106 mmol/L (98-107); CREATININE - SERUM 0.6 mg/dL (0.6-1.3); GLUCOSE 89 mg/dL (74-106); POTASSIUM - SERUM 3.6 mmol/L (3.5-5.1); SODIUM 141 mmol/L (136-145); UREA NITROGEN 13 mg/dL (7-18); eGFR NON AFRICAN AMERICAN > 90 mL/min (90-120)
[2018-12-29 08:00] VITALS: BP 116/49
--- NOTE | 2018-12-29 12:18 | NUR ---
SITTING ON SIDE OF BED EATING LUNCH. FEEDS SELF SLOWLY. FINGERS ARE BENT AND TENDER FROM ARTHRITIS. CALL LIGHT IN REACH
[2018-12-29 13:41] VITALS: Ht 162.6 cm; Wt 65.8 kg
[2018-12-29 19:00] VITALS: BP 125/53
--- NOTE | 2018-12-29 19:32 | NUR ---
PT IN BED LOWEST POSITION, EYES CLOSED,AROUSES EASILY TO VOICE, BREATH EVEN AND UNLABORED, NO IMMEDIATE NEEDS NOTED, FLUIDS AND CALL LIGHT WITHIN REACH
--- NOTE | 2018-12-30 07:33 | NUR ---
LAYING ON BACK IN BED RESTING QUIETLY IN BED. NO S/S DISTRESS. CALL LIGHT IN REACH.
[2018-12-30 08:00] VITALS: BP 115/60
--- NOTE | 2018-12-30 11:51 | NUR ---
SITTING UP IN WC IN ROOM WAITING ON LUNCH. IS COOPERATIVE AND DENIES NEEDS. NEEDS ONE PERSON ASST TO TRANSFER. CALL LIGHT IN REACH
--- NOTE | 2018-12-30 15:19 | NUR ---
LAYING IN BED WATCHING TV. DENIES NEEDS. CALL LIGHT IN REACH
--- NOTE | 2018-12-30 19:41 | NUR ---
PT UP IN CHAIR WATCHING TV, NO NEEDS NOTED, FLUIDS AND CALL LIGHT WITHIN REACH, PLEASANT
--- NOTE | 2018-12-31 01:43 | NUR ---
PT IN BED LOWEST POSITION, EYES CLOSED AROUSES EASILY TO VOICE, BREATHS SLOW EVEN AND UNLABORED, NO NEEDS NOTED, FLUIDS AND CALL LIGHT WITHIN REACH,
[2018-12-31 06:39] VITALS: BP 122/59
[2018-12-31 07:17] LABS: BASOPHILS 0.6 % (0-2); EOSINOPHILS 1.9 % (0-7); HEMATOCRIT 29.5 % (36.0-48.0); HEMOGLOBIN 9.7 g/dL (12-16); IMMATURE GRANULOCYTES 2.1 % (0-5); LYMPHOCYTES 11.8 % (15-50); MCH 29.7 pg (26.0-34.0); MCHC 32.9 g/dL (31.0-37.0); MCV 90.2 fL (80.0-100.0); MEAN PLATELET VOLUME 8.3 fL (7.4-10.4); MONOCYTES 9.7 % (2-11); NEUTROPHILS 73.9 % (40-80); PLATELET COUNT 498 10x3/uL (130-400); RBC 3.27 10x6/uL (4.00-5.40); RDW 15.6 % (11.5-14.5); WBC 6.8 10x3/uL (4.8-10.8)
[2018-12-31 07:23] LABS: CALC OSMOLALITY 280 mosm/kg (275-300); CALCIUM 8.7 mg/dL (8.5-10.1); CHLORIDE - SERUM 106 mmol/L (98-107); CREATININE - SERUM 0.7 mg/dL (0.6-1.3); GLUCOSE 88 mg/dL (74-106); SODIUM 141 mmol/L (136-145); UREA NITROGEN 15 mg/dL (7-18); eGFR NON AFRICAN AMERICAN 85 mL/min (90-120)
[2018-12-31 08:09] VITALS: BP 110/52
--- NOTE | 2018-12-31 08:15 | NUR ---
IN BATHROOM FOR BM. MAX ASST TO TRANSFER. HAS HARDEST TIME SITTING DOWN. BRUISING NOTED TO HIPS AND BUTTOCKS.
--- NOTE | 2018-12-31 10:57 | NUR ---
Nutrition Follow Up: Pt reported that her appetite is fair but seems to be improving some. She stated that she felt she has not had a normal BM in the last few days. RD encouraged pt to increase po intake as able, to increase fluids and to try to drink prune or apple juice to aid with mild constipation. Pt refused supplements at this time. Diet: AHA PO Intake: 64% meal avg BM: 12/31/18 Wt stable Labs and meds reviewed Will change diet to regular to encourage po intake. Will honor food preferences. RD following.
--- NOTE | 2018-12-31 11:31 | RHP ---
PATIENT: NERIS CARTWRIGHT MEDICAL RECORD: [id number] ACCOUNT: [id number] LOCATION:[facility] D.1117 : [birth year] ADMISSION DATE: 12/28/18 REHABILITATION HISTORY AND PHYSICAL EXAMINATION POST ADMISSION PHYSICIAN EXAMINATION ADMITTING DIAGNOSIS: Respiratory failure. HISTORY OF PRESENT ILLNESS: The patient is an 83-year-old female patient admitted to the rehab secondary to acute hypoxia and respiratory failure. She also had aspiration pneumonia and AFib. She was brought to the ED, after EMS, after falling at home. She was lying on the floor most of the night. She states that she was just too weak to move. She had a similar presentation last week after a fall and was seen in another ED at the time of discharge. She arrived via EMS complaining of generalized weakness and being sore all over. Chest x-ray showed a right lower lobe pneumonia, suspicious for aspiration. Her white count was elevated. She was hypoxic. She had a low potassium also. She has got chronic AFib and is on Eliquis. Dr. Figueroa is actually her tin assorter. She denies any precipitating spells prior to her fall. She was short of breath. She was admitted to telemetry. She is admitted secondary to deconditioning and weakness and aspiration pneumonia. She was started on IV fluids and IV medications. Blood cultures were drawn. Her electrolytes were replaced. On 12/23/2018, she had an unsuccessful cardioversion, but remained in a controlled rate. She was living in assisted living in an independent apartment. She was ambulating with a rolling walker for stability, independent with ADLs. Currently, she is mod to max assist for ADLs and mobility. She is weak. She has only ambulated 12 feet with PT. She wants to be able to return back home and get back to her prior level of functioning. COMORBIDITIES: In this patient include falls with weakness and deconditioning and atrial fib, acute hypoxic respiratory failure, status post pacemaker placement, rheumatoid arthritis, hypertension, hyperlipidemia, anemia, electrolyte abnormalities, and elevated CPK. PAST MEDICAL HISTORY: Significant for cataracts, hard of hearing, hypertension, pacemaker, syncope. PAST SURGICAL HISTORY: Includes times 2, pacemaker placement, appendectomy, tonsillectomy and rotator cuff repair. ALLERGIES: PENICILLIN AND SULFA. CURRENT MEDICATIONS: Include Floranex daily. She is on Ditropan 5 mg daily, potassium 99 mg daily, levothyroxine 25 mcg daily. She is on Levaquin 750 mg daily. She is on omega-3 fish oil daily, fenofibrate 145 daily, estradiol 0.5 mg daily, diltiazem 180 mg daily, vitamin B12 daily. She is on aspirin chewable 81 mg daily, amiodarone 200 mg daily, Tylenol 650 q.4 hours p.r.n., melatonin 3 mg at bedtime, glucosamine 500 mg b.i.d., and Eliquis 2.5 mg b.i.d. HABITS: No current alcohol or tobacco use. FAMILY HISTORY: Noncontributory. SOCIAL HISTORY: The patient hopes to return back home and get back to her prior level of functioning. HISTORY AND PHYSICAL [id number] NERIS CARTWRIGHT REVIEW OF SYSTEMS: GENERAL: Does complain of weakness and fatigue. HEENT: Denies cold, cough, or congestion. CARDIOVASCULAR: Denies chest pain. PHYSICAL EXAMINATION: VITAL SIGNS: Stable, afebrile. GENERAL: An elderly female, in no acute distress, alert upon exam. HEENT: Normocephalic and atraumatic. Mucosa moist. NECK: Supple. No lymphadenopathy. LUNGS: Clear in upper diaz, decreased breath sounds in the bases. HEART: Irregular rate and rhythm. ABDOMEN: Benign. EXTREMITIES: No clubbing, cyanosis, or edema. NEUROLOGIC: She seems mainly intact except she does have weakness. LABORATORY DATA: White count is 8.5, H&H 9.5 and 28.7, platelet count is 485. Her sodium is 141, potassium 3.6, BUN and creatinine of 13 and 0.6, and blood sugar is noted to be 89. ASSESSMENT: This is an 83-year-old female patient admitted to rehab with a working diagnosis of respiratory failure complicated by hypoxia and atrial fibrillation. The patient has potential to make improvement. We instituted the following multidisciplinary therapies including, but not limited to physical, occupational, respiratory, speech, nutritional services, prosthetics and orthotics. Given her complex medical conditions and risks for more complications, rehabilitation services cannot be provided at a low level of care such as skilled nurse facility. PLAN: 1. Admit to [facility] for intensive inpatient therapy to include the following disciplines: A. Physical therapy to improve gait, all transfer skills and bed mobility to a modified independent level. B. Occupational therapy to a modified independent level. C. Case management to assist with discharge planning and placement options. D. Nutrition to assist with nutritional needs. E. Rehabilitation nursing to assist with following the patient's medical conditions and to assist with any type of bowel or bladder 2. The patient's current medication and medical care will be continued. 3. The patient will be placed on standard fall precautions. 4. The patient's estimated length of stay is approximately 7-10 days. 5. We will discuss the patient during care team staff meeting this week. TRANSINT:[id number] Voice Confirmation ID: [id number] DOCUMENT ID: [id number] KEKE notes whether there has been none or any medical/functional change since admission: - No change since prescreen. KEKE attests patient continues to be appropriate for IRF: - Continues to be appropriate. HISTORY AND PHYSICAL [id number] NERIS CARTWRIGHT,JESSIKA ANN MD at 1131 CC: [id number] DICTATION DATE: 12/29/18 0847 BATH MIX OPERATOR: 12/29/18 1025 ADM IN [place] [id number] [place] [address]
--- NOTE | 2018-12-31 12:47 | NUR ---
SITTING UP IN WC IN ROOM EATING LUNCH AND VISITING WITH SISTERS. CALL LIGHT IN REACH
[2018-12-31 19:00] VITALS: BP 110/47
--- NOTE | 2018-12-31 19:43 | NUR ---
THE PATIENT WAS LYING IN BED WHEN STAFF ENTERED HER ROOM. BED IS IN THE LOW POSITION WITH SIDERAILS X2 AND CALL LIGHT WITHIN REACH. THE PATIENT WAS EDUCATED ON AND DEMONSTRATED USE OF A CALL LIGHT. THE PATIENT APPEARS COMFORTABLE AND HAS NO QUESTIONS OR CONCERNS AT THIS TIME.
--- NOTE | 2019-01-01 02:38 | NUR ---
THE PATIENT APPEARS TO BE SLEEPING. BED IS IN THE LOW POSITION WITH SIDERAILS X2 AND CALL LIGHT WITHIN REACH.
[2019-01-01 08:00] VITALS: BP 100/63
--- NOTE | 2019-01-01 08:25 | NUR ---
PT ASSISTED TO BR. PT HAD EPISODE OF STRESS INCONT. PT BRIEF CHANGED. PT NOW SITTING UP EATING BREAKFAST, DENIES NEEDS. WCTM.
--- NOTE | 2019-01-01 17:31 | NUR ---
PT EATING DINNER, FAMILY AT BEDSIDE, DENIES NEEDS. WCTM.
--- NOTE | 2019-01-01 19:24 | NUR ---
PT RESTING IN BED WITH EYES OPEN. ALERT AND ORIENTED X 3. VOICED COMPLAINT OF NEEDING TO PEE REALLY BADLY. PT ASSISTED TO BATHROOM WITH MOD ASSIST USING HER HOME ROLLING WALKER. SHE VOIDED WITHOUT DIFFICULTY. ASSISTED BACK TO BED. MULTIPLE BRUISES NOTED ON PTS LOWER BACK AND COCCYX AREA. PT STATES IT HURTS WHEN SHE MOVES. SHE AMBULATES SLOWLY, BUT WITH A STEADY GAIT. SR'S ARE UP X 2 IN BED. CALL LIGHT AND BEDSIDE TABLE ARE WITHIN EASY REACH.
[2019-01-01 19:50] VITALS: BP 104/64
--- NOTE | 2019-01-01 22:19 | NUR ---
PATIENT RESTING QUIETLY AT THIS TIME. NO COMPLAINTS VOICED.
--- NOTE | 2019-01-02 02:06 | NUR ---
RESTING IN BED WITH EYES CLOSED.
--- NOTE | 2019-01-02 04:51 | NUR ---
PT ASSISTED TO THE BATHROOM WITH MOD ASSIST. NO FURTHER NEEDS VOICED.
[2019-01-02 08:00] VITALS: BP 128/61
--- NOTE | 2019-01-02 08:45 | NUR ---
PT AM MEDS ADMINISTERED. PT SHOWERED BY MOVING VAN DRIVER. PT DENIES NEEDS AT THIS TIME. WCTM.
--- NOTE | 2019-01-02 17:35 | NUR ---
PT EATING DINNER, DENIES NEEDS. WCTM.
[2019-01-02 20:00] VITALS: BP 131/78
--- NOTE | 2019-01-02 21:18 | NUR ---
PT SITTING IN WC AT BEDSIDE. ASSISTED TO THE BATHROOM WITH SBA USING HER HOME WALKER. VOIDED WITHOUT DIFFICULTY. SMALL AMOUNT OF STRESS INC. NOTED. PT PROVIDED OWN JOVANNA CARE AND PAD CHANGE. ASSISTED INTO BED WITH MOD ASSIST TO LIFT HER LEGS. NO FURTHER NEEDS VOICED.
--- NOTE | 2019-01-02 22:31 | NUR ---
PATIENT SLEEPING AT THIS TIME. WILL CONTINUE TO MONTIOR.
--- NOTE | 2019-01-03 01:30 | NUR ---
PT ASSISTED TO THE BATHROOM. VOIDED WITHOUT DIFFICULTY.
--- NOTE | 2019-01-03 06:04 | NUR ---
PT ASSISTED TO THE BATHROOM. NO FURTHER NEEDS VOICED.
[2019-01-03 06:44] LABS: BASOPHILS 0.6 % (0-2); EOSINOPHILS 2.1 % (0-7); HEMATOCRIT 30.9 % (36.0-48.0); HEMOGLOBIN 10.1 g/dL (12-16); IMMATURE GRANULOCYTES 0.8 % (0-5); LYMPHOCYTES 18.9 % (15-50); MCH 29.4 pg (26.0-34.0); MCHC 32.7 g/dL (31.0-37.0); MCV 89.8 fL (80.0-100.0); MEAN PLATELET VOLUME 8.3 fL (7.4-10.4); MONOCYTES 12.2 % (2-11); NEUTROPHILS 65.4 % (40-80); PLATELET COUNT 449 10x3/uL (130-400); RBC 3.44 10x6/uL (4.00-5.40); RDW 15.7 % (11.5-14.5); WBC 6.2 10x3/uL (4.8-10.8)
[2019-01-03 07:02] LABS: CALC OSMOLALITY 283 mosm/kg (275-300); CALCIUM 8.4 mg/dL (8.5-10.1); CHLORIDE - SERUM 106 mmol/L (98-107); CREATININE - SERUM 0.7 mg/dL (0.6-1.3); GLUCOSE 91 mg/dL (74-106); POTASSIUM - SERUM 3.8 mmol/L (3.5-5.1); SODIUM 142 mmol/L (136-145); UREA NITROGEN 16 mg/dL (7-18); eGFR NON AFRICAN AMERICAN 85 mL/min (90-120)
[2019-01-03 08:00] VITALS: BP 103/70
--- NOTE | 2019-01-03 10:08 | NUR ---
PT AM MEDS ADMINISTERED. PT PARTICIPATING IN THERAPY. WCFUENTES.
--- NOTE | 2019-01-03 16:43 | NUR ---
PATIENT ADMITTED TO REHAB FROM ACUTE FLOOR. DR. WEBSTER IS HER PCP. DME AT HOME IS A CANE AND A ROLLATOR, PATIENT LIVES AT [facility] AND PLANS ON DISCHARGING BACK THERE. WILL CONTINUE TO FOLLOW WITH PATIENT.
--- NOTE | 2019-01-03 17:45 | NUR ---
PT SITTING UP EATING DINNER, DENIES NEEDS. WCTM.
[2019-01-03 19:00] VITALS: BP 103/59
--- NOTE | 2019-01-03 20:30 | NUR ---
PT IS SITTING IN A WC IN HER ROOM TALKING ON THE TELEPHONE. ALERT AND ORIENTED X 3. DENIES ACUTE DISCOMFORT. NO NEEDS VOICED. TOLERATED PM MEDS WITHOUT DIFFICULTY. CALL LIGHT AND BEDSIDE TABLE ARE WITHIN EASY REACH.
--- NOTE | 2019-01-03 22:26 | NUR ---
PT ASSISTED INTO BED WITH MOD ASSIST FOR THE NIGHT. NO FURTHER NEEDS VOICED.
--- NOTE | 2019-01-03 23:48 | NUR ---
PT IN BED, LOWEST POSITION, EYES CLOSED, AROUSES EASILY TO VOICE, NO IMMEDIATE NEEDS NOTED, FLUIDS AND CALL LIGHT WITHIN REACH
[2019-01-04 08:00] VITALS: BP 107/51
--- NOTE | 2019-01-04 08:00 | NUR ---
PATIENT SITTING UP IN WHEELCHAIR BY BEDSIDE TO EAT BREAKFAST. CALL LIGHT WITHIN REACH. VOICES NO NEEDS. WILL CONTINUE WITH PLAN OF CARE
--- NOTE | 2019-01-04 09:34 | NUR ---
NO DISTRESS NOTED.EYES CLOSED. RESP EVEN AND UNLABORED.
--- NOTE | 2019-01-04 10:11 | NUR ---
PATIENT RESTING IN BED BEFORE THERAPY. CALL LIGHT WITHIN REACH
--- NOTE | 2019-01-04 13:22 | NUR ---
I have reviewed this patient and I concur with the Shift Assessment completed by the Licensed Practical Nurse today this shift.
--- NOTE | 2019-01-04 14:14 | NUR ---
PATIENT IN REHAB ROOM. WORKING WITH PHYSICAL THERAPIST. DENIES ANY PAIN/DISC AT THIS TIME.
--- NOTE | 2019-01-05 00:02 | NUR ---
PT IN BED LOWEST POSITION, EYES CLOSED AROUSES EASILY TO VOICE, BREATHS EVEN AND UNLABORED, NO NEEDS NOTED, FLUIDS AND CALL LIGHT WITHIN REACH
--- NOTE | 2019-01-05 02:38 | NUR ---
PT IN BED LOWEST POSITION, EYES CLOSED AROUSES EASILY TO VOICE, BREATHS EVEN AND UNLABORED, NO NEEDS NOTED, FLUIDS AND CALL LIGHT WITHIN REACH
[2019-01-05 03:39] VITALS: BP 124/51
[2019-01-05 07:04] LABS: BASOPHILS 0.5 % (0-2); EOSINOPHILS 2.3 % (0-7); HEMATOCRIT 32.9 % (36.0-48.0); HEMOGLOBIN 10.9 g/dL (12-16); IMMATURE GRANULOCYTES 0.7 % (0-5); LYMPHOCYTES 24.6 % (15-50); MCH 29.5 pg (26.0-34.0); MCHC 33.1 g/dL (31.0-37.0); MCV 88.9 fL (80.0-100.0); MEAN PLATELET VOLUME 8.4 fL (7.4-10.4); MONOCYTES 11.8 % (2-11); NEUTROPHILS 60.1 % (40-80); PLATELET COUNT 421 10x3/uL (130-400); RDW 15.7 % (11.5-14.5); WBC 5.6 10x3/uL (4.8-10.8)
[2019-01-05 07:34] LABS: CALC OSMOLALITY 281 mosm/kg (275-300); CALCIUM 9.1 mg/dL (8.5-10.1); CARBON DIOXIDE 27.1 mmol/L (21.0-32.0); CHLORIDE - SERUM 105 mmol/L (98-107); CREATININE - SERUM 0.7 mg/dL (0.6-1.3); GLUCOSE 90 mg/dL (74-106); POTASSIUM - SERUM 3.7 mmol/L (3.5-5.1); SODIUM 141 mmol/L (136-145); UREA NITROGEN 15 mg/dL (7-18); eGFR NON AFRICAN AMERICAN 85 mL/min (90-120)
[2019-01-05 08:10] VITALS: BP 103/63
--- NOTE | 2019-01-05 15:25 | NUR ---
CARE TEAM MEETING: PATIENT HAS DONE WELL IN THEREAPY AND TENATIVE DISCHARGE DATE IS 01/06/19 BACK TO HER HOME AT [facility]. [facility]AN WILL BE HERE AT 1:00 PM TO TRANSPORT PATIENT. WILL CONTINUE TO FOLLOW WITH PATIENT
[2019-01-05 19:00] VITALS: BP 103/64
--- NOTE | 2019-01-06 00:52 | NUR ---
PT IN BED LOWEST POSITION, EYES CLOSED AROUSES EASILY TO VOICE, BREATHS EVEN AND UNLABORED, NO NEEDS NOTED, FLUIDS AND CALL LIGHT WITHIN REACH
[2019-01-06 08:00] VITALS: BP 110/56
--- NOTE | 2019-01-06 08:00 | NUR ---
SHIFT ASSMT COMPLETED.BREAKFAST GIVEN.PLAN TO DC HOME TODAY.
--- NOTE | 2019-01-06 11:03 | NUR ---
PATIENT DISCHARGING HOME TO [facility] TODAY. [facility] WILL PROVIDE THERAPY AT HOME. NO NEW DME NEEDED AT THIS TIME. DR. WEBSTER OFFICE WILL CALL PATIENT WITH AN APPOINTMENT. PATIENT CHOICE FORM AND IMFM FORMS SIGNED, COPY GIVEN TO PATIENT AND FILED IN [facility]. DISCHARGE INSTRUCTIONS WITH [employer]IM DATA FAXED TO PCP, HOME HEALTH AND REVIEWED WITH PATIENT.
--- NOTE | 2019-01-06 12:00 | NUR ---
READY FOR DISCHARGE.STATES SON WILL SUPERVISOR DOPING.
--- NOTE | 2019-01-06 14:45 | NUR ---
DISCHARGED TO HOME WITH SON.
== END 2019-01-06 14:45 | disposition home health service (06) | DRG 189 ==
LOC: D.REHAB 20:11
PROVIDERS: ADMIT Emergency Medicine; ATTEND Emergency Medicine
DX: J96.01 Acute respiratory failure with hypoxia (principal); J69.0 Pneumonitis due to inhalation of food and vomit; R53.1 Weakness; M06.9 Rheumatoid arthritis, unspecified; E78.5 Hyperlipidemia, unspecified; I10 Essential (primary) hypertension; I48.91 Unspecified atrial fibrillation; Z95.0 Presence of cardiac pacemaker; E87.8 Other disorders of electrolyte and fluid balance, not elsewhere classified; E83.42 Hypomagnesemia; E87.6 Hypokalemia; D64.9 Anemia, unspecified; Z91.81 History of falling